=== PATIENT | male | born 1990 | race American Indian/Alaskan Native ===

== ENCOUNTER 2018-05-15 21:24 | Emergency (ER) | payer MEDICAID, OTHER ==
[2018-05-15 22:11] LABS: CHLORIDE,CL 98 mmol/L (101-111); SODIUM,NA 131 mmol/L (135-145)
[2018-05-15] MEDS ORDERED: cefTRIAXone 1 GM Vial IVPUSH ONE (22:17)
[2018-05-15] MEDS ORDERED: Acetaminophen 325 MG Tab PO ONE (22:17)
[2018-05-15] MEDS ORDERED: Sodium Chloride 0.9% 1,000 ML IV ONE ×2 (22:17→23:02)
[2018-05-15] MEDS ORDERED: Ibuprofen 600 MG Tab PO ONE (22:22)
--- NOTE | 2018-05-15 22:22 | EDM.PDOC ---
ED HPI GENERAL MEDICAL PROBLEM - General Chief Complaint: ENT Problem Stated Complaint: [id number] head pain since saturday Time Seen by Provider: 05/15/18 22:19 Source of Information: Reports: Patient History Limitations: Reports: No Limitations - History of Present Illness INITIAL COMMENTS - FREE TEXT/NARRATIVE: onset Sx since Saturday with posterior right pain and lump and sore throat been eating ok without N/V. thinks has fever. Bilateral Head Pain Score (Numeric/FACES): 6 - Related Data Allergies Allergy/AdvReac Type Severity Reaction Status Date / Time No Known Allergies Allergy Verified 05/15/18 21:32 Home Meds: Home Meds Acetaminophen [Tylenol] 650 mg PO Q6HR PRN 12/18/15 [History] Past Medical History - Past Health History Medical/Surgical History: Denies Medical/Surgical History Musculoskeletal History: Reports: Back Pain, Chronic Social & Family History - Family History Family Medical History: Noncontributory - Tobacco Use Smoking Status *Q: Current Every Day Smoker Years of Tobacco use: 9 Packs/Tins Daily: 0.1 Second Hand Smoke Exposure: Yes - Caffeine Use Caffeine Use: Reports: Coffee, Soda - Recreational Drug Use Recreational Drug Use: No - Living Situation & Occupation Living situation: Reports: with Family Occupation: Unemployed ED ROS ENT - Review of Systems Review Of Systems: ROS reveals no pertinent complaints other than HPI. ED EXAM, ENT - Physical Exam Exam: See Below Exam Limited By: No Limitations General Appearance: Alert, WD/WN, Mild Distress, Other (distraught) Ears: Normal External Exam, Normal Canal, Hearing Grossly Normal, Normal TMs, Other (rigth post auricular node) Mouth/Throat: Pharyngeal Erythema, Tonsillar Erythema Head: Atraumatic Neck: Non-Tender, Full Range of Motion. No: Lymphadenopathy (L), Lymphadenopathy (R) Respiratory/Chest: No Respiratory Distress Cardiovascular: Regular Rate, Rhythm GI/Abdominal: Soft, Non-Tender Neurological: Alert, Oriented, Normal Cognition, Normal Gait, No Motor/Sensory Deficits Psychiatric: Flat Affect Skin: Warm, Dry Lymphatic: Other (right post auricular) Course - Vital Signs Last Recorded V/S: Last Vital Signs Temp 39.7 C H 05/15/18 23:02 Pulse 107 H 05/15/18 21:27 Resp 18 05/15/18 21:27 BP 127/74 05/15/18 21:27 Pulse Ox 99 05/15/18 21:27 - Orders/Labs/Meds Orders: Active Orders 24 hr Category Date Time Status CULTURE BLOOD [BC] Stat Lab 05/15/18 21:45 Received CULTURE STREP A CONFIRMATION [] Stat Lab 05/15/18 22:17 Results STREP SCRN A RAPID W CULT CONF [] Stat Lab 05/15/18 22:17 Results Sodium Chloride 0.9% [Normal Saline] 1,000 ml Med 05/15/18 23:02 Active IV .BOLUS Medication Orders Sodium Chloride (Normal Saline) 1,000 mls @ 999 mls/hr IV .BOLUS ONE Stop: 05/16/18 00:02 Last Admin: 05/15/18 23:05 Dose: 999 mls/hr Labs: Laboratory Tests 05/15/18 05/15/18 05/15/18 Range/Units 21:45 21:45 21:45 WBC 15.9 H (5.0-10.0) 10^3/uL RBC 4.95 (4.6-6.2) 10^6/uL Hgb 15.1 D (14.0-18.0) g/dL Hct 43.9 (40.0-54.0) % MCV 88.7 (80-100) fL MCH 30.5 (27.0-34.0) pg MCHC 34.4 (33.0-35.0) g/dL Plt Count 210 (150-450) 10^3/uL Neut % (Auto) 86.3 H (42.2-75.2) % Lymph % (Auto) 5.3 L (20.5-50.1) % [place] % (Auto) 8.2 H (2-8) % Eos % (Auto) 0.1 L (1.0-3.0) % Baso % (Auto) 0.1 (0.0-1.0) % Sodium 131 L (135-145) mmol/L Potassium 3.5 L (3.6-5.0) mmol/L Chloride 98 L (101-111) mmol/L Carbon Dioxide 26.0 (21.0-31.0) mmol/L Anion Gap 10.5 BUN 11 (7-18) mg/dL Creatinine 1.1 (0.6-1.3) mg/dL Est Cr Clr Drug Dosing 84.13 mL/min Estimated GFR (MDRD) > 60 BUN/Creatinine Ratio 10.00 Glucose 174 H (74-105) mg/dL Lactic Acid 1.0 (0.5-2.2) mmol/L Calcium 8.5 (8.4-10.2) mg/dl Total Bilirubin 0.6 (0.2-1.0) mg/dL AST 35 (10-42) IU/L ALT 26 (10-60) IU/L Alkaline Phosphatase 81 (42-121) IU/L Total Protein 6.4 L (6.7-8.2) g/dl Albumin 3.6 (3.2-5.5) g/dl Globulin 2.8 Albumin/Globulin Ratio 1.29 Meds: Medications Generic Name Dose Route Start Last Admin Trade Name Alexisq PRN Reason Stop Dose Admin Sodium Chloride 1,000 mls @ 999 mls/hr 05/15/18 23:02 05/15/18 23:05 Normal Saline IV 05/16/18 00:02 999 mls/hr .BOLUS ONE Administration Discontinued Medications Generic Name Dose Route Start Last Admin Trade Name Alexisq PRN Reason Stop Dose Admin Acetaminophen 325 mg 05/15/18 22:17 05/15/18 22:45 Tylenol PO 05/15/18 22:18 Not Given NOW ONE Ceftriaxone Sodium 1 gm 05/15/18 22:17 05/15/18 22:30 Rocephin IVPUSH 05/15/18 22:18 1 gm ONETIME ONE Administration Sodium Chloride 1,000 mls @ 999 mls/hr 05/15/18 22:17 05/15/18 22:30 Normal Saline IV 05/15/18 23:17 999 mls/hr .BOLUS ONE Administration Ibuprofen 600 mg 05/15/18 22:22 05/15/18 22:32 Motrin PO 05/15/18 22:23 600 mg ONETIME ONE Administration - Re-Assessments/Exams Free Text/Narrative Re-Assessment/Exam: 05/15/18 23:20 re-exam; s/p IV + ABX = much better 05/15/18 23:47 re-exam; temp 100.8 feeling better wants to go home. Departure - Departure Time of Disposition: 23:48 Disposition: Home, Self-Care 01 Condition: Good Clinical Impression: Posterior auricular lymphadenopathy, Acute lymphangitis, Electrolyte imbalance - Discharge Information Instructions: Lymphangitis, Adult Referrals: Geovanny Dennison [Primary Care Provider] - Forms: ED Department Discharge Additional Instructions: 1) rest 2) continue tylenol or motrin for fever 3) drink lots of liquids 4) recheck if there is nay change or concern rx given; keflex 250mg qid x 40 - My Orders Last 24 Hours: My Active Orders 05/15/18 21:45 CULTURE BLOOD [BC] Stat 05/15/18 22:17 CULTURE STREP A CONFIRMATION [RM] Stat STREP SCRN A RAPID W CULT CONF [RM] Stat 05/15/18 23:02 Sodium Chloride 0.9% [Normal Saline] 1,000 ml IV .BOLUS - Assessment/Plan Last 24 Hours: My Active Orders 05/15/18 21:45 CULTURE BLOOD [BC] Stat 05/15/18 22:17 CULTURE STREP A CONFIRMATION [RM] Stat STREP SCRN A RAPID W CULT CONF [RM] Stat 05/15/18 23:02 Sodium Chloride 0.9% [Normal Saline] 1,000 ml IV .BOLUS
[2018-05-15 23:48] VITALS: BP 101/55
== END 2018-05-15 23:56 | disposition home or self-care (01) ==
LOC: DL.ED 21:24
DX: H60.11 Cellulitis of right external ear (principal); R59.0 Localized enlarged lymph nodes; E87.8 Other disorders of electrolyte and fluid balance, not elsewhere classified; F17.210 Nicotine dependence, cigarettes, uncomplicated
CPT/HCPCS: 36415; 80053; 83605; 85025; 87040; 87081; 87430; 96361; 96374; 99283; A9270; J0696; J7030

== ENCOUNTER 2019-12-01 15:22 | Emergency (ER) | payer MEDICAID ==
[2019-12-01 15:39] VITALS: BP 130/83; PULSE 125
== END 2019-12-01 17:35 | disposition left against medical advice (07) ==
LOC: DL.ED 15:22
DX: Z53.21 Procedure and treatment not carried out due to patient leaving prior to being seen by health care provider (principal)

== ENCOUNTER 2019-12-03 12:46 | Inpatient (IN) | payer MEDICAID ==
--- NOTE | 2019-12-03 13:36 | EDM.PDOC ---
ED HPI GENERAL MEDICAL PROBLEM - General Chief Complaint: Lower Extremity Injury/Pain Stated Complaint: WOUND ON RT LEG Time Seen by Provider: 12/03/19 13:35 Source of Information: Reports: Patient, Family, Old Records, RN, RN Notes Reviewed History Limitations: Reports: No Limitations - History of Present Illness INITIAL COMMENTS - FREE TEXT/NARRATIVE: Pt presents to ER from home with c/o worsening redness, warmth, and pain with drainage from the right lateral ankle. Pt states he was seen here on 11/27/19 and diagnosed with cellulitis. He was given Rx for Cephalexin and Bactrim DS. Pt states he only took the medicine for about 5 days then lost it. He denies fever. 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 Onset: Gradual Duration: Constant Location: Reports: Lower Extremity, Right Quality: Reports: Same as Previous Episode Severity: Moderate Improves with: Reports: None Worsens with: Reports: None Treatments IN HOME CAREGIVER: Reports: Other Medication(s) Right Leg Pain Score (Numeric/FACES): 6 - Related Data Allergies Allergy/AdvReac Type Severity Reaction Status Date / Time No Known Allergies Allergy Verified 12/03/19 13:38 Home Meds: Home Meds Cephalexin [Keflex] 500 mg PO BID 12/01/19 [History] Past Medical History - Past Health History Medical/Surgical History: Denies Medical/Surgical History HEENT History: Reports: None Cardiovascular History: Reports: None Respiratory History: Reports: None Gastrointestinal History: Reports: None Genitourinary History: Reports: None Musculoskeletal History: Reports: Back Pain, Chronic Neurological History: Reports: None Psychiatric History: Reports: None Endocrine/Metabolic History: Reports: None Hematologic History: Reports: None Immunologic History: Reports: None Oncologic (Cancer) History: Reports: None Dermatologic History: Reports: Cellulitis - Infectious Disease History Infectious Disease History: Reports: MRSA - Past Surgical History Head Surgeries/Procedures: Reports: None Social & Family History - Family History Family Medical History: Noncontributory - Caffeine Use Caffeine Use: Reports: None - Living Situation & Occupation Living situation: Reports: with Family Occupation: Unemployed Review of Systems - Review of Systems Review Of Systems: Comprehensive ROS is negative, except as noted in HPI. ED EXAM, GENERAL - Physical Exam Exam: See Below Exam Limited By: No Limitations General Appearance: Alert, WD/WN, No Apparent Distress Nose: Normal Inspection Throat/Mouth: Normal Inspection Head: Atraumatic, Normocephalic Neck: Normal Inspection Respiratory/Chest: No Respiratory Distress, Lungs Clear Cardiovascular: Normal Peripheral Pulses, Regular Rate, Rhythm, Tachycardia Extremities: Normal Range of Motion, Normal Capillary Refill, Leg Pain (Rt), Redness (Rt lateral lower leg with fluctuant draining, unstagable wound). No: Joint Swelling, Suzette's Sign Neurological: Alert, Oriented, No Motor/Sensory Deficits Psychiatric: Normal Mood Course - Vital Signs Last Recorded V/S: Last Vital Signs Temp 99.2 F 12/03/19 13:32 Pulse 120 H 12/03/19 13:32 Resp 16 12/03/19 13:32 BP 128/87 12/03/19 13:32 Pulse Ox 100 12/03/19 13:32 - Orders/Labs/Meds Orders: Active Orders 24 hr Category Date Time Status Peripheral IV Care [RC] . DIRECTED Care 12/03/19 13:59 Active Ankle Min 3V Rt [CR] Urgent Exams 12/03/19 13:59 Taken CULTURE BLOOD [BC] Stat Lab 12/03/19 14:10 Received CULTURE BLOOD [BC] Stat Lab 12/03/19 14:16 Received CULTURE WOUND [RM] Stat Lab 12/03/19 13:58 Received Sodium Chloride 0.9% [Normal Saline] 1,000 ml Med 12/03/19 14:47 Active IV .BOLUS Sodium Chloride 0.9% [Saline Flush] Med 12/03/19 13:59 Active 10 ml FLUSH ASDIRECTED PRN Vancomycin 1 gm Med 12/03/19 14:47 Active Sodium Chloride 0.9% [Normal Saline] 250 ml IV ONETIME Blood Culture x2 Reflex Set [OM.PC] Stat Oth 12/03/19 13:59 Ordered Peripheral IV Insertion Adult [OM.PC] Stat Oth 12/03/19 13:59 Ordered Medication Orders Sodium Chloride (Normal Saline) 1,000 mls @ 999 mls/hr IV .BOLUS ONE Stop: 12/03/19 15:47 Last Admin: 12/03/19 15:04 Dose: 999 mls/hr Vancomycin HCl 1 gm/ Sodium (Chloride) 250 mls @ 167 mls/hr IV ONETIME ONE Stop: 12/03/19 16:16 Last Admin: 12/03/19 15:10 Dose: 167 mls/hr Sodium Chloride (Saline Flush) 10 ml FLUSH ASDIRECTED PRN PRN Reason: Keep Vein Open Last Admin: 12/03/19 14:31 Dose: 10 ml Labs: Laboratory Tests 12/03/19 12/03/19 12/03/19 Range/Units 14:10 14:10 14:10 WBC 23.8 H (5.0-10.0) 10^3/uL RBC 4.90 (4.6-6.2) 10^6/uL Hgb 14.9 (14.0-18.0) g/dL Hct 42.5 (40.0-54.0) % MCV 86.7 (80-100) fL MCH 30.4 (27.0-34.0) pg MCHC 35.1 H (33.0-35.0) g/dL Plt Count 316 (150-450) 10^3/uL Neut % (Auto) 84.3 H (42.2-75.2) % Lymph % (Auto) 7.3 L (20.5-50.1) % [place] % (Auto) 8.3 H (2-8) % Eos % (Auto) 0.0 L (1.0-3.0) % Baso % (Auto) 0.1 (0.0-1.0) % Sodium 136 (135-145) mmol/L Potassium 3.3 L (3.6-5.0) mmol/L Chloride 100 L (101-111) mmol/L Carbon Dioxide 27.0 (21.0-31.0) mmol/L Anion Gap 12.3 BUN 7 (7-18) mg/dL Creatinine 0.9 (0.6-1.3) mg/dL Est Cr Clr Drug Dosing 77.77 mL/min Estimated GFR (MDRD) > 60 BUN/Creatinine Ratio 7.77 Glucose 115 H (74-105) mg/dL Lactic Acid 0.9 (0.5-2.2) mmol/L Calcium 8.6 (8.4-10.2) mg/dl Total Bilirubin 0.9 (0.2-1.0) mg/dL AST 27 (10-42) IU/L ALT 35 (10-60) IU/L Alkaline Phosphatase 87 (42-121) IU/L C-Reactive Protein (0.0-1.3) mg/dL Total Protein 7.3 (6.7-8.2) g/dl Albumin 3.5 (3.2-5.5) g/dl Globulin 3.8 Albumin/Globulin Ratio 0.92 12/03/19 Range/Units 14:10 WBC (5.0-10.0) 10^3/uL RBC (4.6-6.2) 10^6/uL Hgb (14.0-18.0) g/dL Hct (40.0-54.0) % MCV (80-100) fL MCH (27.0-34.0) pg MCHC (33.0-35.0) g/dL Plt Count (150-450) 10^3/uL Neut % (Auto) (42.2-75.2) % Lymph % (Auto) (20.5-50.1) % [place] % (Auto) (2-8) % Eos % (Auto) (1.0-3.0) % Baso % (Auto) (0.0-1.0) % Sodium (135-145) mmol/L Potassium (3.6-5.0) mmol/L Chloride (101-111) mmol/L Carbon Dioxide (21.0-31.0) mmol/L Anion Gap BUN (7-18) mg/dL Creatinine (0.6-1.3) mg/dL Est Cr Clr Drug Dosing mL/min Estimated GFR (MDRD) BUN/Creatinine Ratio Glucose (74-105) mg/dL Lactic Acid (0.5-2.2) mmol/L Calcium (8.4-10.2) mg/dl Total Bilirubin (0.2-1.0) mg/dL AST (10-42) IU/L ALT (10-60) IU/L Alkaline Phosphatase (42-121) IU/L C-Reactive Protein 17.3 H (0.0-1.3) mg/dL Total Protein (6.7-8.2) g/dl Albumin (3.2-5.5) g/dl Globulin Albumin/Globulin Ratio Meds: Medications Generic Name Dose Route Start Last Admin Trade Name Freq PRN Reason Stop Dose Admin Sodium Chloride 1,000 mls @ 999 mls/hr 12/03/19 14:47 12/03/19 15:04 Normal Saline IV 01/02/20 15:47 999 mls/hr .BOLUS ONE Administration Vancomycin HCl 1 gm/ Sodium 250 mls @ 167 mls/hr 12/03/19 14:47 12/03/19 15: 10 Chloride IV 12/03/19 16:16 167 mls/hr ONETIME ONE Administration Sodium Chloride 10 ml 12/03/19 13:59 12/03/19 14:31 Saline Flush FLUSH 10 ml ASDIRECTED PRN Administration Keep Vein Open Discontinued Medications Generic Name Dose Route Start Last Admin Trade Name Freq PRN Reason Stop Dose Admin Diphenhydramine HCl 12.5 mg 12/03/19 14:55 12/03/19 15:04 Benadryl IVPUSH 12/03/19 14:56 12.5 mg ONETIME ONE Administration Fentanyl 100 mcg 12/03/19 15:16 Sublimaze IVPUSH 12/03/19 15:17 ONETIME ONE Ondansetron HCl 4 mg 12/03/19 15:18 Zofran IV 12/03/19 15:19 ONETIME ONE - Radiology Interpretation Free Text/Narrative:: XR Right Ankle: no fracture, no acute findings, see Rad. report. - Re-Assessments/Exams Free Text/Narrative Re-Assessment/Exam: 12/03/19 15:32 Dr. Cordova is willing to admit the pt if podiatry will consult for possible I&D. 12/03/19 15:33 Dr. Archie Barrow is willing to consult. Departure - Departure Time of Disposition: 15:33 (admitted to Dr. Cordova with Dr. Archie Barrow to consult.) Disposition: Admitted As Inpatient 67 Condition: Fair Clinical Impression: Cellulitis and abscess of right lower extremity - Discharge Information *PRESCRIPTION DRUG MONITORING PROGRAM REVIEWED*: No *COPY OF PRESCRIPTION DRUG MONITORING REPORT IN PATIENT JOSE RAUL: No Forms: ED Department Discharge Sepsis Event Note - Focused Exam Vital Signs: Vital Signs Temp Pulse Resp BP Pulse Ox 12/03/19 13:32 99.2 F 120 H 16 128/87 100 Date Exam was Performed: 12/03/19 Time Exam was Performed: 15:25 - My Orders Last 24 Hours: My Active Orders 12/03/19 13:58 CULTURE WOUND [RM] Stat 12/03/19 13:59 Peripheral IV Care [RC] . DIRECTED Ankle Min 3V Rt [CR] Urgent Sodium Chloride 0.9% [Saline Flush] 10 ml FLUSH ASDIRECTED PRN Blood Culture x2 Reflex Set [OM.PC] Stat Peripheral IV Insertion Adult [OM.PC] Stat 12/03/19 14:10 CULTURE BLOOD [BC] Stat 12/03/19 14:16 CULTURE BLOOD [BC] Stat 12/03/19 14:47 Sodium Chloride 0.9% [Normal Saline] 1,000 ml IV .BOLUS Vancomycin 1 gm Sodium Chloride 0.9% [Normal Saline] 250 ml IV ONETIME - Assessment/Plan Last 24 Hours: My Active Orders 12/03/19 13:58 CULTURE WOUND [RM] Stat 12/03/19 13:59 Peripheral IV Care [RC] . DIRECTED Ankle Min 3V Rt [CR] Urgent Sodium Chloride 0.9% [Saline Flush] 10 ml FLUSH ASDIRECTED PRN Blood Culture x2 Reflex Set [OM.PC] Stat Peripheral IV Insertion Adult [OM.PC] Stat 12/03/19 14:10 CULTURE BLOOD [BC] Stat 12/03/19 14:16 CULTURE BLOOD [BC] Stat 12/03/19 14:47 Sodium Chloride 0.9% [Normal Saline] 1,000 ml IV .BOLUS Vancomycin 1 gm Sodium Chloride 0.9% [Normal Saline] 250 ml IV ONETIME
[2019-12-03] MEDS ORDERED: Sodium Chloride 0.9% 10 ML Syringe FLUSH PRN (13:59)
[2019-12-03 14:43] LABS: ANION GAP 12.3; CHLORIDE,CL 100 mmol/L (101-111); SODIUM,NA 136 mmol/L (135-145)
[2019-12-03] MEDS ORDERED: Sodium Chloride 0.9% 1,000 ML IV ONE (14:47)
[2019-12-03] MEDS ORDERED: diphenhydrAMINE 50 MG/ML SDV IVPUSH ONE (14:55)
[2019-12-03] MEDS ORDERED: fentaNYL 100 MCG/2 ML SDV IVPUSH ONE (15:16)
[2019-12-03] MEDS ORDERED: Ondansetron 4 MG/2 ML SDV IV ONE (15:18)
[2019-12-03] MEDS ORDERED: Morphine 4 MG/ML Syringe IVPUSH PRN (15:22)
[2019-12-03] MEDS ORDERED: Ondansetron 4 MG/2 ML SDV IVPUSH PRN (15:22)
--- NOTE | 2019-12-03 15:34 | PCM.HP ---
H&P History of Present Illness - General Date of Service: 12/03/19 Admit Problem/Dx: Admission Diagnosis/Problem Admission Diagnosis/Problem Sepsis Source of Information: Patient History Limitations: Reports: No Limitations - History of Present Illness Initial Comments - Free Text/Narative: Is a 29-year-old man with no significant past medical history except for chronic low back pain. The patient was having irritation of his right lower leg by his boots in November 2019. After a while the patient began to have pain at the lower leg. The area became reddish and warm to touch. He came to the emergency room and was diagnosed as having cellulitis. Patient was given prescription of Keflex. He did not take the medication as prescribed. Came back today complaining of severe pain at the right lower leg. Intensity of pain is about 9 on a scale of 0-10. Associated chills and rigors. White cell count was found to be elevated at 23,000. Right Leg Pain Score (Numeric/FACES): 6 - Related Data Allergies/Adverse Reactions: Allergies Allergy/AdvReac Type Severity Reaction Status Date / Time No Known Allergies Allergy Verified 12/03/19 13:38 Home Medications: Home Meds Cephalexin [Keflex] 500 mg PO BID 12/01/19 [History] Past Medical History - Past Health History Medical/Surgical History: Denies Medical/Surgical History HEENT History: Reports: None Cardiovascular History: Reports: None Respiratory History: Reports: None Gastrointestinal History: Reports: None Genitourinary History: Reports: None Musculoskeletal History: Reports: Back Pain, Chronic Neurological History: Reports: None Psychiatric History: Reports: None Endocrine/Metabolic History: Reports: None Hematologic History: Reports: None Immunologic History: Reports: None Oncologic (Cancer) History: Reports: None Dermatologic History: Reports: Cellulitis - Infectious Disease History Infectious Disease History: Reports: None - Past Surgical History Head Surgeries/Procedures: Reports: None Social & Family History - Family History Family Medical History: Noncontributory - Tobacco Use Smoking Status *Q: Current Every Day Smoker Years of Tobacco use: 10 Packs/Tins Daily: 0.5 Second Hand Smoke Exposure: No - Caffeine Use Caffeine Use: Reports: None - Recreational Drug Use Recreational Drug Use: No - Living Situation & Occupation Living situation: Reports: with Family Occupation: Unemployed H&P Review of Systems - Review of Systems: Review Of Systems: See Below General: Reports: Fever, Chills, Malaise HEENT: Reports: No Symptoms Pulmonary: Reports: No Symptoms Cardiovascular: Reports: Palpitations Gastrointestinal: Reports: No Symptoms Genitourinary: Reports: No Symptoms Musculoskeletal: Reports: Leg Pain Skin: Reports: Erythema Exam - Exam Exam: See Below - Vital Signs Vital Signs: Last Vital Signs Temp 37.3 C 12/03/19 13:32 Pulse 120 H 12/03/19 13:32 Resp 16 12/03/19 13:32 BP 128/87 12/03/19 13:32 Pulse Ox 100 12/03/19 13:32 Weight: 59.693 kg - Exam General: Alert, Oriented, Cooperative HEENT: Conjunctiva Clear, Hearing Intact Neck: Supple, Trachea Midline Lungs: Clear to Auscultation Cardiovascular: Regular Rate, Tachycardia GI/Abdominal Exam: Normal Bowel Sounds, Soft, Non-Tender, No Organomegaly, No Distention, No Abnormal Bruit, No Mass, Pelvis Stable Extremities: Other (Erythema and swelling of the right lower leg. It is warm to touch. Fluctuant area identified.) - Patient Data Lab Results Last 24 hrs: Laboratory Results - last 24 hr 12/03/19 12/03/19 12/03/19 Range/Units 14:10 14:10 14:10 WBC 23.8 H (5.0-10.0) 10^3/uL RBC 4.90 (4.6-6.2) 10^6/uL Hgb 14.9 (14.0-18.0) g/dL Hct 42.5 (40.0-54.0) % MCV 86.7 (80-100) fL MCH 30.4 (27.0-34.0) pg MCHC 35.1 H (33.0-35.0) g/dL Plt Count 316 (150-450) 10^3/uL Neut % (Auto) 84.3 H (42.2-75.2) % Lymph % (Auto) 7.3 L (20.5-50.1) % [place] % (Auto) 8.3 H (2-8) % Eos % (Auto) 0.0 L (1.0-3.0) % Baso % (Auto) 0.1 (0.0-1.0) % Sodium 136 (135-145) mmol/L Potassium 3.3 L (3.6-5.0) mmol/L Chloride 100 L (101-111) mmol/L Carbon Dioxide 27.0 (21.0-31.0) mmol/L Anion Gap 12.3 BUN 7 (7-18) mg/dL Creatinine 0.9 (0.6-1.3) mg/dL Est Cr Clr Drug Dosing 77.77 mL/min Estimated GFR (MDRD) > 60 BUN/Creatinine Ratio 7.77 Glucose 115 H (74-105) mg/dL Lactic Acid 0.9 (0.5-2.2) mmol/L Calcium 8.6 (8.4-10.2) mg/dl Total Bilirubin 0.9 (0.2-1.0) mg/dL AST 27 (10-42) IU/L ALT 35 (10-60) IU/L Alkaline Phosphatase 87 (42-121) IU/L C-Reactive Protein (0.0-1.3) mg/dL Total Protein 7.3 (6.7-8.2) g/dl Albumin 3.5 (3.2-5.5) g/dl Globulin 3.8 Albumin/Globulin Ratio 0.92 /01/21 Range/Units 14:10 WBC (5.0-10.0) 10^3/uL RBC (4.6-6.2) 10^6/uL Hgb (14.0-18.0) g/dL Hct (40.0-54.0) % MCV (80-100) fL MCH (27.0-34.0) pg MCHC (33.0-35.0) g/dL Plt Count (150-450) 10^3/uL Neut % (Auto) (42.2-75.2) % Lymph % (Auto) (20.5-50.1) % [place] % (Auto) (2-8) % Eos % (Auto) (1.0-3.0) % Baso % (Auto) (0.0-1.0) % Sodium (135-145) mmol/L Potassium (3.6-5.0) mmol/L Chloride (101-111) mmol/L Carbon Dioxide (21.0-31.0) mmol/L Anion Gap BUN (7-18) mg/dL Creatinine (0.6-1.3) mg/dL Est Cr Clr Drug Dosing mL/min Estimated GFR (MDRD) BUN/Creatinine Ratio Glucose (74-105) mg/dL Lactic Acid (0.5-2.2) mmol/L Calcium (8.4-10.2) mg/dl Total Bilirubin (0.2-1.0) mg/dL AST (10-42) IU/L ALT (10-60) IU/L Alkaline Phosphatase (42-121) IU/L C-Reactive Protein 17.3 H (0.0-1.3) mg/dL Total Protein (6.7-8.2) g/dl Albumin (3.2-5.5) g/dl Globulin Albumin/Globulin Ratio Result Diagrams: 12/03/19 14:10 12/03/19 14:10 Problem List Initiated/Reviewed/Updated: Yes Orders Last 24hrs: Active Orders 24 hr Category Date Time Status Patient Status [ADT] Routine ADT 12/03/19 15:22 Ordered Intake and Output [RC] QSHIFT Care 12/03/19 15:23 Ordered Oxygen Therapy [RC] PRN Care 12/03/19 15:22 Ordered Peripheral IV Care [RC] . DIRECTED Care 12/03/19 13:59 Active Up ad Charline [RC] ASDIRECTED Care 12/03/19 15:22 Ordered VTE/DVT Education [RC] PER UNIT ROUTINE Care 12/03/19 15:22 Ordered Vital Signs [RC] Q4H Care 12/03/19 15:22 Ordered Regular Diet [DIET] Diet 12/03/19 Dinner Ordered Ankle Min 3V Rt [CR] Urgent Exams 12/03/19 13:59 Taken BASIC METABOLIC PANEL,BMP [CHEM] AM Lab 12/04/19 05:11 Ordered CBC WITH AUTO DIFF [HEME] AM Lab 12/04/19 05:11 Ordered CULTURE BLOOD [BC] Stat Lab 12/03/19 14:10 Received CULTURE BLOOD [BC] Stat Lab 12/03/19 14:16 Received CULTURE WOUND [RM] Stat Lab 12/03/19 13:58 Received Enoxaparin [Lovenox] Med 12/04/19 09:00 Ordered 30 mg SUBCUT DAILY Morphine Med 12/03/19 15:22 Ordered 4 mg IVPUSH Q2H PRN Ondansetron [Zofran] Med 12/03/19 15:22 Ordered 4 mg IVPUSH Q6H PRN Pharmacy to Dose - Vancomycin Med 12/03/19 15:25 Once 1,000 dose .XX ONETIME ONE Piperacillin/Tazobactam [Zosyn] 3.375 gm Med 12/03/19 15:30 Ordered Sodium Chloride 0.9% [Normal Saline] 100 ml IV Q4H Sodium Chloride 0.9% @ 125 MLS/HR (1000ml) Med 12/03/19 15:30 Ordered Sodium Chloride 0.9% [Normal Saline] 1,000 ml IV ASDIRECTED Sodium Chloride 0.9% [Normal Saline] 1,000 ml Med 12/03/19 14:47 Active IV .BOLUS Sodium Chloride 0.9% [Saline Flush] Med 12/03/19 13:59 Active 10 ml FLUSH ASDIRECTED PRN Vancomycin 1 gm Med 12/03/19 14:47 Active Sodium Chloride 0.9% [Normal Saline] 250 ml IV ONETIME Blood Culture x2 Reflex Set [OM.PC] Stat Oth 12/03/19 13:59 Ordered Peripheral IV Insertion Adult [OM.PC] Stat Oth 12/03/19 13:59 Ordered Resuscitation Status Routine Resus Stat 12/03/19 15:22 Ordered Medication Orders Enoxaparin Sodium (Lovenox) 30 mg SUBCUT DAILY [facility] Sodium Chloride (Normal Saline) 1,000 mls @ 999 mls/hr IV .BOLUS ONE Stop: 12/03/19 15:47 Last Admin: 12/03/19 15:04 Dose: 999 mls/hr Vancomycin HCl 1 gm/ Sodium (Chloride) 250 mls @ 167 mls/hr IV ONETIME ONE Stop: 12/03/19 16:16 Last Admin: 12/03/19 15:10 Dose: 167 mls/hr Piperacillin Sod/Tazobactam (Sod 3.375 gm/ Sodium Chloride) 100 mls @ 200 mls/ hr IV Q4H [facility] Sodium Chloride (Normal Saline) 1,000 mls @ 125 mls/hr IV ASDIRECTED [facility] Morphine Sulfate (Morphine) 4 mg IVPUSH Q2H PRN PRN Reason: Pain (severe 7-10) Ondansetron HCl (Zofran) 4 mg IVPUSH Q6H PRN PRN Reason: Nausea/Vomiting Sodium Chloride (Saline Flush) 10 ml FLUSH ASDIRECTED PRN PRN Reason: Keep Vein Open Last Admin: 12/03/19 14:31 Dose: 10 ml Vancomycin HCl (Pharmacy To Dose - Vancomycin) 1,000 dose .XX ONETIME ONE Stop: 12/03/19 15:26 Assessment/Plan Comment:: #. Sepsis this is secondary to cellulitis of the right leg and abscess #. Abscess right leg #. Cellulitis of the right leg There is abscess noted underneath the skin. Patient is not a diabetic. I do not think whether with necrotizing fasciitis but we have to keep that in mind. #. Hypokalemia Reason for this is not obvious Plan: Admit patient to medical floor Patient required surgical drainage of the abscess. This was discussed with emergency room physician indicated that he would contact the receipt and report clerk for the procedure in the operating room Start empiric antibiotics with intravenous Zosyn Start intravenous vancomycin Obtain blood cultures Intravenous morphine for pain control Discussed with the emergency room physician
[2019-12-03] MEDS ORDERED: Lidocaine 1% 30 ML SDV INJECT ONE (15:45)
[2019-12-03] MEDS ORDERED: Bupivacaine 0.5% 30 ML SDV INJECT ONE (15:45)
--- NOTE | 2019-12-03 16:43 | PCM.CONSN ---
- General Info Date of Service: 12/03/19 Subjective Update: 29 y/o male presents to ER with right lower extremity pain and redness. Reports he was first seen 11/27, did get prescribed antibiotics but he lost them so only took them for a couple days. States pain and redness has worsened the last couple of days. 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 Functional Status: Reports: Pain Controlled - Patient Data Vitals - Most Recent: Last Vital Signs Temp 37.3 C 12/03/19 13:32 Pulse 120 H 12/03/19 13:32 Resp 16 12/03/19 13:32 BP 128/87 12/03/19 13:32 Pulse Ox 100 12/03/19 13:32 Weight - Most Recent: 59.693 kg Lab Results Last 24 Hours: Laboratory Results - last 24 hr 12/03/19 12/03/19 12/03/19 Range/Units 14:10 14:10 14:10 WBC 23.8 H (5.0-10.0) 10^3/uL RBC 4.90 (4.6-6.2) 10^6/uL Hgb 14.9 (14.0-18.0) g/dL Hct 42.5 (40.0-54.0) % MCV 86.7 (80-100) fL MCH 30.4 (27.0-34.0) pg MCHC 35.1 H (33.0-35.0) g/dL Plt Count 316 (150-450) 10^3/uL Neut % (Auto) 84.3 H (42.2-75.2) % Lymph % (Auto) 7.3 L (20.5-50.1) % [place] % (Auto) 8.3 H (2-8) % Eos % (Auto) 0.0 L (1.0-3.0) % Baso % (Auto) 0.1 (0.0-1.0) % Sodium 136 (135-145) mmol/L Potassium 3.3 L (3.6-5.0) mmol/L Chloride 100 L (101-111) mmol/L Carbon Dioxide 27.0 (21.0-31.0) mmol/L Anion Gap 12.3 BUN 7 (7-18) mg/dL Creatinine 0.9 (0.6-1.3) mg/dL Est Cr Clr Drug Dosing 77.77 mL/min Estimated GFR (MDRD) > 60 BUN/Creatinine Ratio 7.77 Glucose 115 H (74-105) mg/dL Lactic Acid 0.9 (0.5-2.2) mmol/L Calcium 8.6 (8.4-10.2) mg/dl Total Bilirubin 0.9 (0.2-1.0) mg/dL AST 27 (10-42) IU/L ALT 35 (10-60) IU/L Alkaline Phosphatase 87 (42-121) IU/L C-Reactive Protein (0.0-1.3) mg/dL Total Protein 7.3 (6.7-8.2) g/dl Albumin 3.5 (3.2-5.5) g/dl Globulin 3.8 Albumin/Globulin Ratio 0.92 12/03/19 Range/Units 14:10 WBC (5.0-10.0) 10^3/uL RBC (4.6-6.2) 10^6/uL Hgb (14.0-18.0) g/dL Hct (40.0-54.0) % MCV (80-100) fL MCH (27.0-34.0) pg MCHC (33.0-35.0) g/dL Plt Count (150-450) 10^3/uL Neut % (Auto) (42.2-75.2) % Lymph % (Auto) (20.5-50.1) % [place] % (Auto) (2-8) % Eos % (Auto) (1.0-3.0) % Baso % (Auto) (0.0-1.0) % Sodium (135-145) mmol/L Potassium (3.6-5.0) mmol/L Chloride (101-111) mmol/L Carbon Dioxide (21.0-31.0) mmol/L Anion Gap BUN (7-18) mg/dL Creatinine (0.6-1.3) mg/dL Est Cr Clr Drug Dosing mL/min Estimated GFR (MDRD) BUN/Creatinine Ratio Glucose (74-105) mg/dL Lactic Acid (0.5-2.2) mmol/L Calcium (8.4-10.2) mg/dl Total Bilirubin (0.2-1.0) mg/dL AST (10-42) IU/L ALT (10-60) IU/L Alkaline Phosphatase (42-121) IU/L C-Reactive Protein 17.3 H (0.0-1.3) mg/dL Total Protein (6.7-8.2) g/dl Albumin (3.2-5.5) g/dl Globulin Albumin/Globulin Ratio Med Orders - Current: Current Medications Enoxaparin Sodium (Lovenox) 40 mg SUBCUT DAILY [facility] Piperacillin Sod/Tazobactam (Sod 3.375 gm/ Sodium Chloride) 100 mls @ 200 mls/ hr IV Q6H [facility] Sodium Chloride (Normal Saline) 1,000 mls @ 125 mls/hr IV ASDIRECTED [facility] Vancomycin HCl 1 gm/ Premix 200 mls @ 133.333 mls/hr IV Q8H [facility] Morphine Sulfate (Morphine) 4 mg IVPUSH Q2H PRN PRN Reason: Pain (severe 7-10) Ondansetron HCl (Zofran) 4 mg IVPUSH Q6H PRN PRN Reason: Nausea/Vomiting Sodium Chloride (Saline Flush) 10 ml FLUSH ASDIRECTED PRN PRN Reason: Keep Vein Open Last Admin: 12/03/19 14:31 Dose: 10 ml Vancomycin HCl (Pharmacy To Dose - Vancomycin) 1,000 dose .XX ONETIME ONE Stop: 12/03/19 15:26 Discontinued Medications Bupivacaine HCl (Marcaine 0.5%) 30 ml INJECT ONETIME ONE Stop: 12/03/19 15:46 Last Admin: 12/03/19 15:56 Dose: 30 ml Diphenhydramine HCl (Benadryl) 12.5 mg IVPUSH ONETIME ONE Stop: 12/03/19 14:56 Last Admin: 12/03/19 15:04 Dose: 12.5 mg Fentanyl (Sublimaze) 100 mcg IVPUSH ONETIME ONE Stop: 12/03/19 15:17 Last Admin: 12/03/19 15:40 Dose: 100 mcg Sodium Chloride (Normal Saline) 1,000 mls @ 999 mls/hr IV .BOLUS ONE Stop: 12/03/19 15:47 Last Admin: 12/03/19 15:04 Dose: 999 mls/hr Vancomycin HCl 1 gm/ Sodium (Chloride) 250 mls @ 167 mls/hr IV ONETIME ONE Stop: 12/03/19 16:16 Last Admin: 12/03/19 15:10 Dose: 167 mls/hr Lidocaine HCl (Xylocaine-Mpf 1%) 30 ml INJECT ONETIME ONE Stop: 12/03/19 15:46 Last Admin: 12/03/19 15:56 Dose: 30 ml Ondansetron HCl (Zofran) 4 mg IV ONETIME ONE Stop: 12/03/19 15:19 Last Admin: 12/03/19 15:39 Dose: 4 mg - Exam General: Alert, Oriented, No Acute Distress Physical Findings Comments:: Right LE physical exam reveals 2/4 DP/PT pulses, pain to right lateral ankle extending to calf area, cellulitis to lateral foot/lower leg with area of fluctuance to lateral ankle area, upon incision of the fluctuant area there was a large amount of purulent drainage expressed, did not go to ankle joint, did not track up tendon, no bone visualize or probed. Xrays right ankle reveals no signs of cortical reaction, no gas in soft tissues. Sepsis Event Note - Evaluation Sepsis Screening Result: No Definite Risk - Focused Exam Vital Signs: Vital Signs Temp Pulse Resp BP Pulse Ox 12/03/19 13:32 37.3 C 120 H 16 128/87 100 Date Exam was Performed: 12/03/19 Time Exam was Performed: 16:35 Consult PN Assessment/Plan Procedures: Procedures ASSAY OF AMYLASE (12/18/15) ASSAY OF LACTIC ACID (11/17/19) ASSAY OF LIPASE (12/18/15) BLOOD CULTURE FOR BACTERIA (11/17/19) COMPLETE CBC W/AUTO DIFF WBC (11/17/19) COMPREHEN METABOLIC PANEL (11/17/19) CULTURE AEROBIC IDENTIFY (11/17/19) CULTURE OTHR SPECIMN AEROBIC (11/17/19) CULTURE SCREEN ONLY (05/15/18) EMERGENCY DEPT VISIT (11/17/19) EMERGENCY DEPT VISIT (12/18/15) EMERGENCY DEPT VISIT (10/15/15) EMERGENCY DEPT VISIT (12/19/13) HYDRATE IV INFUSION ADD-ON (05/15/18) MANUAL THERAPY 1/> [facility] (02/01/14) PT EVALUATION (02/01/14) ROUTINE VENIPUNCTURE (11/17/19) STREP A AG IA (05/15/18) THER/PROPH/DIAG INJ IV PUSH (05/15/18) THER/PROPH/DIAG IV INF ADDON (11/17/19) THER/PROPH/DIAG IV INF INIT (11/17/19) THERAPEUTIC EXERCISES (02/01/14) TX/PRO/DX INJ NEW DRUG ADDON (12/18/15) URINALYSIS AUTO W/SCOPE (12/18/15) X-RAY EXAM CHEST 2 VIEWS (02/05/19) X-RAY EXAM OF HAND (10/15/15) (1) Cellulitis and abscess of right lower extremity SNOMED Code(s): 154389282 Code(s): L03.115 - CELLULITIS OF RIGHT LOWER LIMB; L02.415 - CUTANEOUS ABSCESS OF RIGHT LOWER LIMB Current Visit: Yes Problem List Initiated/Reviewed/Updated: Yes Plan: Discussed abscess with patient and I&D procedure, he has had this done on his arm in the past, verablizes consent for right lateral ankle I&D at bedside in ER. I prepped with hibacleanse scrub. I then made small incision to lateral right ankle at area of fluctuance measuring 2cm, large amount of purulent drainage was expressed. I used the hemostat to ensure no areas of purulent pockets and I was able to visualize the underlying area which did not extend to ankle joint or along tendon course. I irrigated with copious amounts of NS, I then packed open with iodoform packing. Dressed with gauze and franklin. He is being admitted to the floor for IV antibiotics. Cultures were taken. I will recheck tomorrow AM, Will have him be NPO after midnight tonight just in case no improvement or need for OR tomorrow.
--- NOTE | 2019-12-03 17:19 | CR ---
EXAMINATION: Ankle Min 3V Rt SEX: Male AGE: 29 years CLINICAL HISTORY: 29-year-old male with "draining ulcer" and clinical cellulitis laterally right ankle. Interpretation: Pronounced soft tissue swelling (STS), laterally, right ankle. No sign of underlying inflammatory periostitis or osteomyelitis. No acute fracture or dislocation right ankle (suggestion of small ankle joint effusion). No foreign bodies. No heel spurs.
[2019-12-03] MEDS: Sodium Chloride 0.9% 1,000 ML IV SCH (17:24)
[2019-12-03] MEDS: Piperacillin/Tazobactam 3.375 GM in Sodium Chloride 0.9% 100 ML IV SCH (17:27)
[2019-12-03] MEDS: Acetaminophen/oxyCODONE 325-5 MG Tab PO PRN ×2 (17:27→21:30)
[2019-12-04] MEDS: Piperacillin/Tazobactam 3.375 GM in Sodium Chloride 0.9% 100 ML IV SCH ×5 (00:51→23:38)
[2019-12-04] MEDS: Sodium Chloride 0.9% 1,000 ML IV SCH (01:31)
[2019-12-04 06:58] LABS: CHLORIDE,CL 103 mmol/L (101-111); SODIUM,NA 136 mmol/L (135-145)
[2019-12-04] MEDS: Acetaminophen/oxyCODONE 325-5 MG Tab PO PRN ×4 (08:24→21:23)
[2019-12-04] MEDS: Enoxaparin 40 MG/0.4 ML Syringe SUBCUT SCH (08:25)
--- NOTE | 2019-12-04 11:33 | PCM.PN ---
- General Info Date of Service: 12/04/19 Subjective Update: Patient offers no new complaint today. Still having significant pain of the right lower extremity. Analgesics are helping. The duration of pain is since greater than 1 week No nausea and no vomiting.. - Review of Systems General: Reports: Weakness - Patient Data Vitals - Most Recent: Last Vital Signs Temp 36.9 C 12/04/19 08:00 Pulse 90 12/04/19 08:00 Resp 16 12/04/19 08:00 BP 109/61 12/04/19 08:00 Pulse Ox 99 12/04/19 08:00 Weight - Most Recent: 59.058 kg I&O - Last 24 Hours: Intake & Output 12/03/19 12/04/19 12/04/19 22:59 06:59 14:59 Intake Total 1469 240 Balance 1469 240 Lab Results Last 24 Hours: Laboratory Results - last 24 hr 12/03/19 12/03/19 12/03/19 Range/Units 14:10 14:10 14:10 WBC 23.8 H (5.0-10.0) 10^3/uL RBC 4.90 (4.6-6.2) 10^6/uL Hgb 14.9 (14.0-18.0) g/dL Hct 42.5 (40.0-54.0) % MCV 86.7 (80-100) fL MCH 30.4 (27.0-34.0) pg MCHC 35.1 H (33.0-35.0) g/dL Plt Count 316 (150-450) 10^3/uL Neut % (Auto) 84.3 H (42.2-75.2) % Lymph % (Auto) 7.3 L (20.5-50.1) % [place] % (Auto) 8.3 H (2-8) % Eos % (Auto) 0.0 L (1.0-3.0) % Baso % (Auto) 0.1 (0.0-1.0) % Sodium 136 (135-145) mmol/L Potassium 3.3 L (3.6-5.0) mmol/L Chloride 100 L (101-111) mmol/L Carbon Dioxide 27.0 (21.0-31.0) mmol/L Anion Gap 12.3 BUN 7 (7-18) mg/dL Creatinine 0.9 (0.6-1.3) mg/dL Est Cr Clr Drug Dosing 77.77 mL/min Estimated GFR (MDRD) > 60 BUN/Creatinine Ratio 7.77 Glucose 115 H (74-105) mg/dL Lactic Acid 0.9 (0.5-2.2) mmol/L Calcium 8.6 (8.4-10.2) mg/dl Total Bilirubin 0.9 (0.2-1.0) mg/dL AST 27 (10-42) IU/L ALT 35 (10-60) IU/L Alkaline Phosphatase 87 (42-121) IU/L C-Reactive Protein (0.0-1.3) mg/dL Total Protein 7.3 (6.7-8.2) g/dl Albumin 3.5 (3.2-5.5) g/dl Globulin 3.8 Albumin/Globulin Ratio 0.92 12/03/19 12/04/19 12/04/19 Range/Units 14:10 05:45 05:45 WBC 16.1 H (5.0-10.0) 10^3/uL RBC 4.42 L (4.6-6.2) 10^6/uL Hgb 13.1 L D (14.0-18.0) g/dL Hct 39.0 L (40.0-54.0) % MCV 88.2 (80-100) fL MCH 29.6 (27.0-34.0) pg MCHC 33.6 (33.0-35.0) g/dL Plt Count 306 (150-450) 10^3/uL Neut % (Auto) 76.4 H (42.2-75.2) % Lymph % (Auto) 13.4 L (20.5-50.1) % [place] % (Auto) 9.5 H (2-8) % Eos % (Auto) 0.5 L (1.0-3.0) % Baso % (Auto) 0.2 (0.0-1.0) % Sodium 136 (135-145) mmol/L Potassium 4.0 (3.6-5.0) mmol/L Chloride 103 (101-111) mmol/L Carbon Dioxide 25.0 (21.0-31.0) mmol/L Anion Gap 12.0 BUN 8 (7-18) mg/dL Creatinine 0.9 (0.6-1.3) mg/dL Est Cr Clr Drug Dosing 102.08 mL/min Estimated GFR (MDRD) > 60 BUN/Creatinine Ratio Glucose 107 H (74-105) mg/dL Lactic Acid (0.5-2.2) mmol/L Calcium 7.8 L (8.4-10.2) mg/dl Total Bilirubin (0.2-1.0) mg/dL AST (10-42) IU/L ALT (10-60) IU/L Alkaline Phosphatase (42-121) IU/L C-Reactive Protein 17.3 H (0.0-1.3) mg/dL Total Protein (6.7-8.2) g/dl Albumin (3.2-5.5) g/dl Globulin Albumin/Globulin Ratio Reinaldo Results Last 24 Hours: Microbiology 12/03/19 13:58 Wound Culture - Preliminary Ankle, Right Med Orders - Current: Current Medications Enoxaparin Sodium (Lovenox) 40 mg SUBCUT DAILY [facility] Last Admin: 12/04/19 08:25 Dose: Not Given Piperacillin Sod/Tazobactam (Sod 3.375 gm/ Sodium Chloride) 100 mls @ 200 mls/ hr IV Q6H [facility] Last Infusion: 12/04/19 06:28 Dose: Infused Sodium Chloride (Normal Saline) 1,000 mls @ 75 mls/hr IV ASDIRECTED [facility] Last Admin: 12/04/19 01:31 Dose: 125 mls/hr Vancomycin HCl 1 gm/ Premix 200 mls @ 133.333 mls/hr IV Q8H [facility] Last Admin: 12/04/19 08:25 Dose: 133.333 mls/hr Morphine Sulfate (Morphine) 4 mg IVPUSH Q2H PRN PRN Reason: Pain (severe 7-10) Ondansetron HCl (Zofran) 4 mg IVPUSH Q6H PRN PRN Reason: Nausea/Vomiting Oxycodone/Acetaminophen (Percocet 325-5 Mg) 1 tab PO Q4H PRN PRN Reason: Pain (moderate 4-6) Last Admin: 12/04/19 08:24 Dose: 1 tab Sodium Chloride (Saline Flush) 10 ml FLUSH ASDIRECTED PRN PRN Reason: Keep Vein Open Vancomycin HCl (Pharmacy To Dose - Vancomycin) 0 dose .XX ASDIRECTED [facility] Discontinued Medications Bupivacaine HCl (Marcaine 0.5%) 30 ml INJECT ONETIME ONE Stop: 12/03/19 15:46 Last Admin: 12/03/19 15:56 Dose: 30 ml Diphenhydramine HCl (Benadryl) 12.5 mg IVPUSH ONETIME ONE Stop: 12/03/19 14:56 Last Admin: 12/03/19 15:04 Dose: 12.5 mg Fentanyl (Sublimaze) 100 mcg IVPUSH ONETIME ONE Stop: 12/03/19 15:17 Last Admin: 12/03/19 15:40 Dose: 100 mcg Sodium Chloride (Normal Saline) 1,000 mls @ 999 mls/hr IV .BOLUS ONE Stop: 12/03/19 15:47 Last Admin: 12/03/19 15:04 Dose: 999 mls/hr Vancomycin HCl 1 gm/ Sodium (Chloride) 250 mls @ 167 mls/hr IV ONETIME ONE Stop: 12/03/19 16:16 Last Admin: 12/03/19 15:10 Dose: 167 mls/hr Lidocaine HCl (Xylocaine-Mpf 1%) 30 ml INJECT ONETIME ONE Stop: 12/03/19 15:46 Last Admin: 12/03/19 15:56 Dose: 30 ml Ondansetron HCl (Zofran) 4 mg IV ONETIME ONE Stop: 12/03/19 15:19 Last Admin: 12/03/19 15:39 Dose: 4 mg Sodium Chloride (Saline Flush) 10 ml FLUSH ASDIRECTED PRN PRN Reason: Keep Vein Open Last Admin: 12/03/19 14:31 Dose: 10 ml - Exam General: Alert, Oriented, Cooperative, No Acute Distress Neck: Supple Lungs: Clear to Auscultation, Normal Respiratory Effort Cardiovascular: Regular Rate, Regular Rhythm GI/Abdominal Exam: Normal Bowel Sounds, Soft, Non-Tender, No Organomegaly, No Distention, No Abnormal Bruit, No Mass, Pelvis Stable Sepsis Event Note - Evaluation Sepsis Screening Result: No Definite Risk - Focused Exam Vital Signs: Vital Signs Temp Pulse Resp BP Pulse Ox 12/04/19 08:00 36.9 C 90 16 109/61 99 12/04/19 04:00 37.2 C 95 16 115/75 99 12/04/19 00:00 37.4 C 95 16 116/77 95 Date Exam was Performed: 12/04/19 Time Exam was Performed: 11:31 - Problem List Review Problem List Initiated/Reviewed/Updated: Yes - My Orders Last 24 Hours: My Active Orders 12/03/19 15:22 Patient Status [ADT] Routine Oxygen Therapy [RC] PRN Up ad Charline [RC] ASDIRECTED VTE/DVT Education [RC] PER UNIT ROUTINE Vital Signs [RC] Q4H Morphine 4 mg IVPUSH Q2H PRN Ondansetron [Zofran] 4 mg IVPUSH Q6H PRN Resuscitation Status Routine 12/03/19 15:23 Intake and Output [RC] QSHIFT 12/03/19 15:30 Sodium Chloride 0.9% [Normal Saline] 1,000 ml IV ASDIRECTED 12/03/19 17:11 Acetaminophen/oxyCODONE [Percocet 325-5 MG] 1 tab PO Q4H PRN 12/03/19 18:00 Piperacillin/Tazobactam [Zosyn] 3.375 gm Sodium Chloride 0.9% [Normal Saline] 100 ml IV Q6H 12/03/19 Dinner Nothing per Oral After Midnight Diet [DIET] Regular Diet [DIET] 12/04/19 08:23 Sodium Chloride 0.9% [Saline Flush] 10 ml FLUSH ASDIRECTED PRN 12/04/19 09:00 Enoxaparin [Lovenox] 40 mg SUBCUT DAILY 12/04/19 14:30 VANCOMYCIN TROUGH [CHEM] Timed 12/04/19 15:25 Pharmacy to Dose - Vancomycin 0 dose .XX ASDIRECTED 12/05/19 06:00 CBC W/O DIFF,HEMOGRAM [HEME] Routine - Plan Plan:: #. Sepsis this is secondary to cellulitis of the right leg and abscess #. Abscess right lower leg Patient is status post drainage of the abscess #. Cellulitis of the right leg Has erythema, tenderness and warmth of the right lower leg #. Hypokalemia Replaced Plan: Podiatry consulted. Underwent incision and drainage Discontinue intravenous fluids Continue intravenous vancomycin Continue intravenous Zosyn Obtain repeat complete blood count
--- NOTE | 2019-12-04 16:49 | PCM.CONSN ---
- General Info Date of Service: 12/04/19 Admission Dx/Problem (Free Text): right ankle abscess and cellulitis Subjective Update: 29 y/o male 1 day status post I&D right ankle abscess, states pain is somewhat improved today to right leg and swelling seems better to the foot. No new issues today. - Patient Data Vitals - Most Recent: Last Vital Signs Temp 37.4 C 12/04/19 11:52 Pulse 84 12/04/19 11:52 Resp 18 12/04/19 11:52 BP 120/65 12/04/19 11:52 Pulse Ox 98 12/04/19 11:52 Weight - Most Recent: 59.058 kg I&O - Last 24 Hours: Intake & Output 12/04/19 12/04/19 12/04/19 06:59 14:59 22:59 Intake Total 480 Balance 480 Lab Results Last 24 Hours: Laboratory Results - last 24 hr 12/04/19 12/04/19 12/04/19 Range/Units 05:45 05:45 14:20 WBC 16.1 H (5.0-10.0) 10^3/uL RBC 4.42 L (4.6-6.2) 10^6/uL Hgb 13.1 L D (14.0-18.0) g/dL Hct 39.0 L (40.0-54.0) % MCV 88.2 (80-100) fL MCH 29.6 (27.0-34.0) pg MCHC 33.6 (33.0-35.0) g/dL Plt Count 306 (150-450) 10^3/uL Neut % (Auto) 76.4 H (42.2-75.2) % Lymph % (Auto) 13.4 L (20.5-50.1) % [place] % (Auto) 9.5 H (2-8) % Eos % (Auto) 0.5 L (1.0-3.0) % Baso % (Auto) 0.2 (0.0-1.0) % Sodium 136 (135-145) mmol/L Potassium 4.0 (3.6-5.0) mmol/L Chloride 103 (101-111) mmol/L Carbon Dioxide 25.0 (21.0-31.0) mmol/L Anion Gap 12.0 BUN 8 (7-18) mg/dL Creatinine 0.9 (0.6-1.3) mg/dL Est Cr Clr Drug Dosing 102.08 mL/min Estimated GFR (MDRD) > 60 Glucose 107 H (74-105) mg/dL Calcium 7.8 L (8.4-10.2) mg/dl Vancomycin Trough 10.8 (10-15) ug/ml Reinaldo Results Last 24 Hours: Microbiology 12/03/19 14:16 Aerobic Blood Culture - Preliminary Blood - Venous - Lab Draw NO GROWTH AFTER 1 DAY Anaerobic Blood Culture - Preliminary NO GROWTH AFTER 1 DAY 12/03/19 14:10 Aerobic Blood Culture - Preliminary Blood - Venous NO GROWTH AFTER 1 DAY Anaerobic Blood Culture - Preliminary NO GROWTH AFTER 1 DAY 12/03/19 13:58 Wound Culture - Preliminary Ankle, Right Med Orders - Current: Current Medications Enoxaparin Sodium (Lovenox) 40 mg SUBCUT DAILY [facility] Last Admin: 12/04/19 08:25 Dose: Not Given Piperacillin Sod/Tazobactam (Sod 3.375 gm/ Sodium Chloride) 100 mls @ 200 mls/ hr IV Q6H [facility] Last Admin: 12/04/19 13:20 Dose: 200 mls/hr Vancomycin HCl 1 gm/ Premix 200 mls @ 133.333 mls/hr IV Q8H [facility] Last Admin: 12/04/19 16:15 Dose: 130 mls/hr Morphine Sulfate (Morphine) 4 mg IVPUSH Q2H PRN PRN Reason: Pain (severe 7-10) Ondansetron HCl (Zofran) 4 mg IVPUSH Q6H PRN PRN Reason: Nausea/Vomiting Oxycodone/Acetaminophen (Percocet 325-5 Mg) 1 tab PO Q4H PRN PRN Reason: Pain (moderate 4-6) Last Admin: 12/04/19 12:44 Dose: 1 tab Sodium Chloride (Saline Flush) 10 ml FLUSH ASDIRECTED PRN PRN Reason: Keep Vein Open Vancomycin HCl (Pharmacy To Dose - Vancomycin) 0 dose .XX ASDIRECTED [facility] Discontinued Medications Bupivacaine HCl (Marcaine 0.5%) 30 ml INJECT ONETIME ONE Stop: 12/03/19 15:46 Last Admin: 12/03/19 15:56 Dose: 30 ml Diphenhydramine HCl (Benadryl) 12.5 mg IVPUSH ONETIME ONE Stop: 12/03/19 14:56 Last Admin: 12/03/19 15:04 Dose: 12.5 mg Fentanyl (Sublimaze) 100 mcg IVPUSH ONETIME ONE Stop: 12/03/19 15:17 Last Admin: 12/03/19 15:40 Dose: 100 mcg Sodium Chloride (Normal Saline) 1,000 mls @ 999 mls/hr IV .BOLUS ONE Stop: 12/03/19 15:47 Last Admin: 12/03/19 15:04 Dose: 999 mls/hr Vancomycin HCl 1 gm/ Sodium (Chloride) 250 mls @ 167 mls/hr IV ONETIME ONE Stop: 12/03/19 16:16 Last Admin: 12/03/19 15:10 Dose: 167 mls/hr Sodium Chloride (Normal Saline) 1,000 mls @ 75 mls/hr IV ASDIRECTED [facility] Last Admin: 12/04/19 01:31 Dose: 125 mls/hr Vancomycin HCl 1 gm/ Premix 200 mls @ 133.333 mls/hr IV Q8H [facility] Last Admin: 12/04/19 16:35 Dose: Not Given Lidocaine HCl (Xylocaine-Mpf 1%) 30 ml INJECT ONETIME ONE Stop: 12/03/19 15:46 Last Admin: 12/03/19 15:56 Dose: 30 ml Ondansetron HCl (Zofran) 4 mg IV ONETIME ONE Stop: 12/03/19 15:19 Last Admin: 12/03/19 15:39 Dose: 4 mg Sodium Chloride (Saline Flush) 10 ml FLUSH ASDIRECTED PRN PRN Reason: Keep Vein Open Last Admin: 12/03/19 14:31 Dose: 10 ml - Exam General: Alert, Oriented, No Acute Distress Physical Findings Comments:: Right LE exam today reveals improved erythema to foot/ankle with wound to lateral right ankle. I am not able to express any purulent drainage for the area today, visualization of the base of the wound from the incision appears with healthy appearing tissue. Pain to danny wound area and extending proximally along lateral ankle/calf but improved from yesterday. Overall, looks improved. Sepsis Event Note - Evaluation Sepsis Screening Result: No Definite Risk - Focused Exam Vital Signs: Vital Signs Temp Pulse Resp BP Pulse Ox 12/04/19 11:52 37.4 C 84 18 120/65 98 01/03/20 08:00 36.9 C 90 16 109/61 99 Date Exam was Performed: 12/04/19 Time Exam was Performed: 16:43 Consult PN Assessment/Plan POD#: 1 Procedures: Procedures ASSAY OF AMYLASE (12/18/15) ASSAY OF LACTIC ACID (11/17/19) ASSAY OF LIPASE (12/18/15) BLOOD CULTURE FOR BACTERIA (11/17/19) COMPLETE CBC W/AUTO DIFF WBC (11/17/19) COMPREHEN METABOLIC PANEL (11/17/19) CULTURE AEROBIC IDENTIFY (11/17/19) CULTURE OTHR SPECIMN AEROBIC (11/17/19) CULTURE SCREEN ONLY (05/15/18) EMERGENCY DEPT VISIT (11/17/19) EMERGENCY DEPT VISIT (12/18/15) EMERGENCY DEPT VISIT (10/15/15) EMERGENCY DEPT VISIT (12/19/13) HYDRATE IV INFUSION ADD-ON (05/15/18) MANUAL THERAPY 1/> [facility] (02/01/14) PT EVALUATION (02/01/14) ROUTINE VENIPUNCTURE (11/17/19) STREP A AG IA (05/15/18) THER/PROPH/DIAG INJ IV PUSH (05/15/18) THER/PROPH/DIAG IV INF ADDON (11/17/19) THER/PROPH/DIAG IV INF INIT (11/17/19) THERAPEUTIC EXERCISES (02/01/14) TX/PRO/DX INJ NEW DRUG ADDON (12/18/15) URINALYSIS AUTO W/SCOPE (12/18/15) X-RAY EXAM CHEST 2 VIEWS (02/05/19) X-RAY EXAM OF HAND (10/15/15) (1) Cellulitis and abscess of right lower extremity SNOMED Code(s): 448463346 Code(s): L03.115 - CELLULITIS OF RIGHT LOWER LIMB; L02.415 - CUTANEOUS ABSCESS OF RIGHT LOWER LIMB Current Visit: Yes Problem List Initiated/Reviewed/Updated: Yes Plan: I did removed dressing and packing today at bedside. Area overall looks improved and not able to express any purulence today, abscess not deep. I irrigated I&D area with NS and cleansed with vashe wound cleanser. I then packed with iodoform packing and applied new dressing with gauze and franklin. WBC down today to 16 from 23 yesterday. I will recheck him again tomorrow AM, plan on NPO again tonight after midnight until after I eval in the morning. I do not expect to have to take him to OR but will do NPO just in case.
[2019-12-05] MEDS: Piperacillin/Tazobactam 3.375 GM in Sodium Chloride 0.9% 100 ML IV SCH (05:55)
[2019-12-05] MEDS: Acetaminophen/oxyCODONE 325-5 MG Tab PO PRN ×4 (06:00→18:47)
[2019-12-05] MEDS: Sodium Chloride 0.9% 10 ML Syringe FLUSH PRN ×2 (08:02→17:36)
[2019-12-05] MEDS: Enoxaparin 40 MG/0.4 ML Syringe SUBCUT SCH (08:02)
[2019-12-05] MEDS ORDERED: Morphine 4 MG/ML Syringe IVPUSH PRN (09:02)
--- NOTE | 2019-12-05 09:22 | PCM.CONSN ---
- General Info Date of Service: 12/05/19 Admission Dx/Problem (Free Text): right ankle abscess and cellulitis Subjective Update: 29 y/o male 2 days status post I&D right ankle abscess, admitted with IV antibiotics vancomycin. pt states pain improved today. He has been keeping leg elevated in bed. Denies any new issues today. - Patient Data Vitals - Most Recent: Last Vital Signs Temp 36.9 C 12/05/19 08:02 Pulse 84 12/05/19 08:02 Resp 20 12/05/19 08:02 BP 127/70 12/05/19 08:02 Pulse Ox 99 12/05/19 08:02 Weight - Most Recent: 59.058 kg I&O - Last 24 Hours: Intake & Output 12/04/19 12/05/19 12/05/19 22:59 06:59 14:59 Intake Total 540 Balance 540 Lab Results Last 24 Hours: Laboratory Results - last 24 hr 12/04/19 12/05/19 Range/Units 14:20 05:45 WBC 9.6 (5.0-10.0) 10^3/uL RBC 4.63 (4.6-6.2) 10^6/uL Hgb 13.9 L (14.0-18.0) g/dL Hct 41.0 (40.0-54.0) % MCV 88.6 (80-100) fL MCH 30.0 (27.0-34.0) pg MCHC 33.9 (33.0-35.0) g/dL Plt Count 364 (150-450) 10^3/uL Vancomycin Trough 10.8 (10-15) ug/ml Reinaldo Results Last 24 Hours: Microbiology 12/03/19 13:58 Wound Culture - Final Ankle, Right Streptococcus Group A 12/03/19 14:16 Aerobic Blood Culture - Preliminary Blood - Venous - Lab Draw NO GROWTH AFTER 1 DAY Anaerobic Blood Culture - Preliminary NO GROWTH AFTER 1 DAY 12/03/19 14:10 Aerobic Blood Culture - Preliminary Blood - Venous NO GROWTH AFTER 1 DAY Anaerobic Blood Culture - Preliminary NO GROWTH AFTER 1 DAY Med Orders - Current: Current Medications Enoxaparin Sodium (Lovenox) 40 mg SUBCUT DAILY [facility] Last Admin: 12/05/19 08:02 Dose: Not Given Cefazolin Sodium/Dextrose 2 gm (/ Premix) 50 mls @ 100 mls/hr IV Q8H [facility] Morphine Sulfate (Morphine) 4 mg IVPUSH Q6H PRN PRN Reason: Pain (severe 7-10) Ondansetron HCl (Zofran) 4 mg IVPUSH Q6H PRN PRN Reason: Nausea/Vomiting Oxycodone/Acetaminophen (Percocet 325-5 Mg) 1 tab PO Q4H PRN PRN Reason: Pain (moderate 4-6) Last Admin: 12/05/19 06:00 Dose: 1 tab Sodium Chloride (Saline Flush) 10 ml FLUSH ASDIRECTED PRN PRN Reason: Keep Vein Open Last Admin: 12/05/19 08:02 Dose: 10 ml Discontinued Medications Bupivacaine HCl (Marcaine 0.5%) 30 ml INJECT ONETIME ONE Stop: 12/03/19 15:46 Last Admin: 12/03/19 15:56 Dose: 30 ml Diphenhydramine HCl (Benadryl) 12.5 mg IVPUSH ONETIME ONE Stop: 12/03/19 14:56 Last Admin: 12/03/19 15:04 Dose: 12.5 mg Fentanyl (Sublimaze) 100 mcg IVPUSH ONETIME ONE Stop: 12/03/19 15:17 Last Admin: 12/03/19 15:40 Dose: 100 mcg Sodium Chloride (Normal Saline) 1,000 mls @ 999 mls/hr IV .BOLUS ONE Stop: 12/03/19 15:47 Last Admin: 12/03/19 15:04 Dose: 999 mls/hr Vancomycin HCl 1 gm/ Sodium (Chloride) 250 mls @ 167 mls/hr IV ONETIME ONE Stop: 12/03/19 16:16 Last Admin: 12/03/19 15:10 Dose: 167 mls/hr Piperacillin Sod/Tazobactam (Sod 3.375 gm/ Sodium Chloride) 100 mls @ 200 mls/ hr IV Q6H [facility] Last Admin: 12/05/19 05:55 Dose: 200 mls/hr Sodium Chloride (Normal Saline) 1,000 mls @ 75 mls/hr IV ASDIRECTED [facility] Last Admin: 12/04/19 01:31 Dose: 125 mls/hr Vancomycin HCl 1 gm/ Premix 200 mls @ 133.333 mls/hr IV Q8H [facility] Last Admin: 12/04/19 16:35 Dose: Not Given Vancomycin HCl 1 gm/ Premix 200 mls @ 133.333 mls/hr IV Q8H [facility] Last Admin: 12/05/19 08:01 Dose: 130 mls/hr Lidocaine HCl (Xylocaine-Mpf 1%) 30 ml INJECT ONETIME ONE Stop: 12/03/19 15:46 Last Admin: 12/03/19 15:56 Dose: 30 ml Morphine Sulfate (Morphine) 4 mg IVPUSH Q2H PRN PRN Reason: Pain (severe 7-10) Ondansetron HCl (Zofran) 4 mg IV ONETIME ONE Stop: 12/03/19 15:19 Last Admin: 12/03/19 15:39 Dose: 4 mg Sodium Chloride (Saline Flush) 10 ml FLUSH ASDIRECTED PRN PRN Reason: Keep Vein Open Last Admin: 12/03/19 14:31 Dose: 10 ml Vancomycin HCl (Pharmacy To Dose - Vancomycin) 0 dose .XX ASDIRECTED [facility] - Exam General: Alert, Oriented, No Acute Distress Physical Findings Comments:: RLE physical exam today reveals wound to lateral right ankle which is partial thickness and probes approx 1.5 cm around the incision area, not able to express any purulence from the wound today. there is a small area of necrotic skin overyling where abscess was drained. Significant improvement in pain today with palpation to the danny wound area compared to yesterday, no pain medial ankle or along ankle joint, no pain extending proximally up leg. Improved erythema to lateral foot/ankle today. N/V intact. Sepsis Event Note - Evaluation Sepsis Screening Result: No Definite Risk - Focused Exam Vital Signs: Vital Signs Temp Pulse Resp BP Pulse Ox 12/05/19 08:02 36.9 C 84 20 127/70 99 12/05/19 00:00 36.8 C 63 16 120/65 100 Date Exam was Performed: 12/05/19 Time Exam was Performed: 09:17 Consult PN Assessment/Plan POD#: 2 Procedures: Procedures ASSAY OF AMYLASE (12/18/15) ASSAY OF LACTIC ACID (11/17/19) ASSAY OF LIPASE (12/18/15) BLOOD CULTURE FOR BACTERIA (11/17/19) COMPLETE CBC W/AUTO DIFF WBC (11/17/19) COMPREHEN METABOLIC PANEL (11/17/19) CULTURE AEROBIC IDENTIFY (11/17/19) CULTURE OTHR SPECIMN AEROBIC (11/17/19) CULTURE SCREEN ONLY (05/15/18) EMERGENCY DEPT VISIT (11/17/19) EMERGENCY DEPT VISIT (12/18/15) EMERGENCY DEPT VISIT (10/15/15) EMERGENCY DEPT VISIT (12/19/13) HYDRATE IV INFUSION ADD-ON (05/15/18) MANUAL THERAPY 1/> [facility] (02/01/14) PT EVALUATION (02/01/14) ROUTINE VENIPUNCTURE (11/17/19) STREP A AG IA (05/15/18) THER/PROPH/DIAG INJ IV PUSH (05/15/18) THER/PROPH/DIAG IV INF ADDON (11/17/19) THER/PROPH/DIAG IV INF INIT (11/17/19) THERAPEUTIC EXERCISES (02/01/14) TX/PRO/DX INJ NEW DRUG ADDON (12/18/15) URINALYSIS AUTO W/SCOPE (12/18/15) X-RAY EXAM CHEST 2 VIEWS (02/05/19) X-RAY EXAM OF HAND (10/15/15) (1) Cellulitis and abscess of right lower extremity SNOMED Code(s): 075169817 Code(s): L03.115 - CELLULITIS OF RIGHT LOWER LIMB; L02.415 - CUTANEOUS ABSCESS OF RIGHT LOWER LIMB Current Visit: Yes Problem List Initiated/Reviewed/Updated: Yes Plan: RLE overall looks improved again and I am not able to express any purulence today upon removal of dressing. I irrigated I&D area with NS and cleansed with vashe wound cleanser. I then packed with iodoform packing and applied new dressing, I did a LP lower extremity compression dressing today to help with edema. WBC down today to 9.6 from 16 yesterday. I will recheck him again tomorrow AM for dressing change.
[2019-12-05] MEDS: ceFAZolin 2 GM in Premix Bag 1 BAG IV SCH ×2 (10:03→17:36)
--- NOTE | 2019-12-05 10:10 | PCM.PN ---
- General Info Date of Service: 12/05/19 Subjective Update: Patient has no new complaint today Continues to have pain at the left lower extremity Intensity of pain is about 5-6 on a scale 0-10 Worse with dressing changes an associated swelling of the distal right leg - Review of Systems General: Reports: Weakness Musculoskeletal: Reports: Leg Pain, Foot Pain - Patient Data Vitals - Most Recent: Last Vital Signs Temp 36.9 C 12/05/19 08:02 Pulse 84 12/05/19 08:02 Resp 20 12/05/19 08:02 BP 127/70 12/05/19 08:02 Pulse Ox 99 12/05/19 08:02 Weight - Most Recent: 59.058 kg I&O - Last 24 Hours: Intake & Output 12/04/19 12/05/19 12/05/19 22:59 06:59 14:59 Intake Total 540 Balance 540 Lab Results Last 24 Hours: Laboratory Results - last 24 hr 12/04/19 12/05/19 Range/Units 14:20 05:45 WBC 9.6 (5.0-10.0) 10^3/uL RBC 4.63 (4.6-6.2) 10^6/uL Hgb 13.9 L (14.0-18.0) g/dL Hct 41.0 (40.0-54.0) % MCV 88.6 (80-100) fL MCH 30.0 (27.0-34.0) pg MCHC 33.9 (33.0-35.0) g/dL Plt Count 364 (150-450) 10^3/uL Vancomycin Trough 10.8 (10-15) ug/ml Reinaldo Results Last 24 Hours: Microbiology 12/03/19 13:58 Wound Culture - Final Ankle, Right Streptococcus Group A 12/03/19 14:16 Aerobic Blood Culture - Preliminary Blood - Venous - Lab Draw NO GROWTH AFTER 1 DAY Anaerobic Blood Culture - Preliminary NO GROWTH AFTER 1 DAY 12/03/19 14:10 Aerobic Blood Culture - Preliminary Blood - Venous NO GROWTH AFTER 1 DAY Anaerobic Blood Culture - Preliminary NO GROWTH AFTER 1 DAY Med Orders - Current: Current Medications Enoxaparin Sodium (Lovenox) 40 mg SUBCUT DAILY [facility] Last Admin: 12/05/19 08:02 Dose: Not Given Cefazolin Sodium/Dextrose 2 gm (/ Premix) 50 mls @ 100 mls/hr IV Q8H [facility] Last Admin: 12/05/19 10:03 Dose: 100 mls/hr Morphine Sulfate (Morphine) 4 mg IVPUSH Q6H PRN PRN Reason: Pain (severe 7-10) Ondansetron HCl (Zofran) 4 mg IVPUSH Q6H PRN PRN Reason: Nausea/Vomiting Oxycodone/Acetaminophen (Percocet 325-5 Mg) 1 tab PO Q4H PRN PRN Reason: Pain (moderate 4-6) Last Admin: 12/05/19 10:03 Dose: 1 tab Sodium Chloride (Saline Flush) 10 ml FLUSH ASDIRECTED PRN PRN Reason: Keep Vein Open Last Admin: 12/05/19 08:02 Dose: 10 ml Discontinued Medications Bupivacaine HCl (Marcaine 0.5%) 30 ml INJECT ONETIME ONE Stop: 12/03/19 15:46 Last Admin: 12/03/19 15:56 Dose: 30 ml Diphenhydramine HCl (Benadryl) 12.5 mg IVPUSH ONETIME ONE Stop: 12/03/19 14:56 Last Admin: 12/03/19 15:04 Dose: 12.5 mg Fentanyl (Sublimaze) 100 mcg IVPUSH ONETIME ONE Stop: 12/03/19 15:17 Last Admin: 12/03/19 15:40 Dose: 100 mcg Sodium Chloride (Normal Saline) 1,000 mls @ 999 mls/hr IV .BOLUS ONE Stop: 12/03/19 15:47 Last Admin: 12/03/19 15:04 Dose: 999 mls/hr Vancomycin HCl 1 gm/ Sodium (Chloride) 250 mls @ 167 mls/hr IV ONETIME ONE Stop: 12/03/19 16:16 Last Admin: 12/03/19 15:10 Dose: 167 mls/hr Piperacillin Sod/Tazobactam (Sod 3.375 gm/ Sodium Chloride) 100 mls @ 200 mls/ hr IV Q6H [facility] Last Admin: 12/05/19 05:55 Dose: 200 mls/hr Sodium Chloride (Normal Saline) 1,000 mls @ 75 mls/hr IV ASDIRECTED [facility] Last Admin: 12/04/19 01:31 Dose: 125 mls/hr Vancomycin HCl 1 gm/ Premix 200 mls @ 133.333 mls/hr IV Q8H [facility] Last Admin: 12/04/19 16:35 Dose: Not Given Vancomycin HCl 1 gm/ Premix 200 mls @ 133.333 mls/hr IV Q8H [facility] Last Infusion: 12/05/19 09:48 Dose: Infused Lidocaine HCl (Xylocaine-Mpf 1%) 30 ml INJECT ONETIME ONE Stop: 12/03/19 15:46 Last Admin: 12/03/19 15:56 Dose: 30 ml Morphine Sulfate (Morphine) 4 mg IVPUSH Q2H PRN PRN Reason: Pain (severe 7-10) Ondansetron HCl (Zofran) 4 mg IV ONETIME ONE Stop: 12/03/19 15:19 Last Admin: 12/03/19 15:39 Dose: 4 mg Sodium Chloride (Saline Flush) 10 ml FLUSH ASDIRECTED PRN PRN Reason: Keep Vein Open Last Admin: 12/03/19 14:31 Dose: 10 ml Vancomycin HCl (Pharmacy To Dose - Vancomycin) 0 dose .XX ASDIRECTED [facility] - Exam General: Alert, Oriented, Cooperative Neck: Supple Lungs: Clear to Auscultation, Normal Respiratory Effort Cardiovascular: Regular Rate, Regular Rhythm GI/Abdominal Exam: Normal Bowel Sounds, Soft, Non-Tender, No Organomegaly, No Distention, No Abnormal Bruit, No Mass, Pelvis Stable Extremities: Redness, Other (Draining wound right lower leg) Sepsis Event Note - Evaluation Sepsis Screening Result: No Definite Risk - Focused Exam Vital Signs: Vital Signs Temp Pulse Resp BP Pulse Ox 12/05/19 08:02 36.9 C 84 20 127/70 99 12/05/19 00:00 36.8 C 63 16 120/65 100 Date Exam was Performed: 12/05/19 Time Exam was Performed: 10:11 - Problem List Review Problem List Initiated/Reviewed/Updated: Yes - My Orders Last 24 Hours: My Active Orders 12/05/19 09:02 Morphine 4 mg IVPUSH Q6H PRN 12/05/19 10:00 ceFAZolin [Ancef] 2 gm Premix Bag 1 bag IV Q8H - Plan Plan:: #. Sepsis this is secondary to cellulitis of the right leg and abscess Blood cultures have been negative Wound culture grew Streptococcus #. Abscess right lower leg Patient is status post drainage of the abscess Wound culture grew Streptococcus #. Cellulitis of the right leg Has erythema, tenderness and warmth of the right lower leg #. Hypokalemia Replaced Plan: Is continue intravenous Zosyn Discontinue intravenous vancomycin Start patient on intravenous cefazolin 2 g every 8 hours Discussed with pulpit operator We'll apply wraps to the right lower extremity
[2019-12-06] MEDS: Sodium Chloride 0.9% 10 ML Syringe FLUSH PRN (01:47)
[2019-12-06] MEDS: ceFAZolin 2 GM in Premix Bag 1 BAG IV SCH ×2 (01:47→09:37)
[2019-12-06] MEDS: Acetaminophen/oxyCODONE 325-5 MG Tab PO PRN ×2 (01:57→08:43)
[2019-12-06 08:13] VITALS: BP 125/76; PULSE 96
[2019-12-06] MEDS: Enoxaparin 40 MG/0.4 ML Syringe SUBCUT SCH (08:43)
--- NOTE | 2019-12-06 09:03 | PCM.DCSUM1 ---
Discharge Summary - Hospital Course Free Text/Narrative:: The patient presented to the emergency room with complaint of fever chills and rigors. Also has been having pain of the right lower leg. Developed cellulitis which was treated as outpatient but patient was not compliant with medication. His white cell count was elevated up to 23,000. Patient was admitted to the hospital and placed on intravenous antibiotics. We consulted podiatry and they performed incision and drainage of right leg abscess. Patient is feeling better and will be discharged home. He will continue with outpatient lymphedema therapy and oral antibiotics. Blood cultures were negative. Cultures from the wound grew group A streptococcus #. Sepsis this is secondary to cellulitis of the right leg and abscess Blood cultures have been negative Wound culture grew Streptococcus #. Abscess right lower leg Patient is status post drainage of the abscess Wound culture grew Streptococcus #. Cellulitis of the right leg Had erythema, tenderness and warmth of the right lower leg #. Hypokalemia Replaced - Discharge Data Discharge Date: 12/06/19 Discharge Disposition: Home, Self-Care 01 Condition: Good - Referral to Home Health Primary Care Physician: PCP Unobtainable - Patient Instructions Activity: As Tolerated Driving: May Drive Today, Do Not Drive Showering/Bathing: May Shower Notify Provider of: Fever, Increased Pain, Swelling and Redness Other/Special Instructions: F/up with PMD. Continue lymphedema therapy as directed by podiatry - Discharge Plan *PRESCRIPTION DRUG MONITORING PROGRAM REVIEWED*: No *COPY OF PRESCRIPTION DRUG MONITORING REPORT IN PATIENT JOSE RAUL: No Prescriptions/Med Rec: Acetaminophen/oxyCODONE [Percocet 325-5 MG] 1 tab PO Q4H PRN #20 tablet PRN Reason: Pain (Moderate 4-6) Amoxicillin/Clavulanate K [Augmentin 875-125 MG] 1 tab PO BID #14 tablet Home Medications: Home Meds Acetaminophen/oxyCODONE [Percocet 325-5 MG] 1 tab PO Q4H PRN #20 tablet [Rx] Amoxicillin/Clavulanate K [Augmentin 875-125 MG] 1 tab PO BID #14 tablet [Rx] Referrals: PCP,Unobtain [Primary Care Provider] - - Discharge Summary/Plan Comment DC Time >30 min.: No - General Info Date of Service: 12/06/19 - Review of Systems General: Reports: Malaise Pulmonary: Reports: No Symptoms Cardiovascular: Reports: No Symptoms Musculoskeletal: Reports: Leg Pain - Patient Data Vitals - Most Recent: Last Vital Signs Temp 37.2 C 12/06/19 08:12 Pulse 96 12/06/19 08:12 Resp 20 12/06/19 08:12 BP 125/76 12/06/19 08:12 Pulse Ox 100 12/06/19 08:12 Weight - Most Recent: 59.058 kg I&O - Last 24 hours: Intake & Output 12/05/19 12/06/19 12/06/19 22:59 06:59 14:59 Intake Total 0 50 Output Total 400 Balance 0 -350 SWAPNA Results - Last 24 hrs: Microbiology 12/03/19 14:16 Aerobic Blood Culture - Preliminary Blood - Venous - Lab Draw NO GROWTH AFTER 2 DAYS Anaerobic Blood Culture - Preliminary NO GROWTH AFTER 2 DAYS 12/03/19 14:10 Aerobic Blood Culture - Preliminary Blood - Venous NO GROWTH AFTER 2 DAYS Anaerobic Blood Culture - Preliminary NO GROWTH AFTER 2 DAYS 12/03/19 13:58 Wound Culture - Final Ankle, Right Streptococcus Group A Med Orders - Current: Current Medications Enoxaparin Sodium (Lovenox) 40 mg SUBCUT DAILY [facility] Last Admin: 12/06/19 08:43 Dose: Not Given Cefazolin Sodium/Dextrose 2 gm (/ Premix) 50 mls @ 100 mls/hr IV Q8H [facility] Last Infusion: 12/06/19 02:25 Dose: Infused Morphine Sulfate (Morphine) 4 mg IVPUSH Q6H PRN PRN Reason: Pain (severe 7-10) Ondansetron HCl (Zofran) 4 mg IVPUSH Q6H PRN PRN Reason: Nausea/Vomiting Oxycodone/Acetaminophen (Percocet 325-5 Mg) 1 tab PO Q4H PRN PRN Reason: Pain (moderate 4-6) Last Admin: 12/06/19 08:43 Dose: 1 tab Sodium Chloride (Saline Flush) 10 ml FLUSH ASDIRECTED PRN PRN Reason: Keep Vein Open Last Admin: 12/06/19 01:47 Dose: 10 ml Discontinued Medications Bupivacaine HCl (Marcaine 0.5%) 30 ml INJECT ONETIME ONE Stop: 12/03/19 15:46 Last Admin: 12/03/19 15:56 Dose: 30 ml Diphenhydramine HCl (Benadryl) 12.5 mg IVPUSH ONETIME ONE Stop: 12/03/19 14:56 Last Admin: 12/03/19 15:04 Dose: 12.5 mg Fentanyl (Sublimaze) 100 mcg IVPUSH ONETIME ONE Stop: 12/03/19 15:17 Last Admin: 12/03/19 15:40 Dose: 100 mcg Sodium Chloride (Normal Saline) 1,000 mls @ 999 mls/hr IV .BOLUS ONE Stop: 12/03/19 15:47 Last Admin: 12/03/19 15:04 Dose: 999 mls/hr Vancomycin HCl 1 gm/ Sodium (Chloride) 250 mls @ 167 mls/hr IV ONETIME ONE Stop: 12/03/19 16:16 Last Admin: 12/03/19 15:10 Dose: 167 mls/hr Piperacillin Sod/Tazobactam (Sod 3.375 gm/ Sodium Chloride) 100 mls @ 200 mls/ hr IV Q6H [facility] Last Admin: 12/05/19 05:55 Dose: 200 mls/hr Sodium Chloride (Normal Saline) 1,000 mls @ 75 mls/hr IV ASDIRECTED NICOLAS Last Admin: 12/04/19 01:31 Dose: 125 mls/hr Vancomycin HCl 1 gm/ Premix 200 mls @ 133.333 mls/hr IV Q8H [facility] Last Admin: 12/04/19 16:35 Dose: Not Given Vancomycin HCl 1 gm/ Premix 200 mls @ 133.333 mls/hr IV Q8H [facility] Last Infusion: 12/05/19 09:48 Dose: Infused Lidocaine HCl (Xylocaine-Mpf 1%) 30 ml INJECT ONETIME ONE Stop: 12/03/19 15:46 Last Admin: 12/03/19 15:56 Dose: 30 ml Morphine Sulfate (Morphine) 4 mg IVPUSH Q2H PRN PRN Reason: Pain (severe 7-10) Ondansetron HCl (Zofran) 4 mg IV ONETIME ONE Stop: 12/03/19 15:19 Last Admin: 12/03/19 15:39 Dose: 4 mg Sodium Chloride (Saline Flush) 10 ml FLUSH ASDIRECTED PRN PRN Reason: Keep Vein Open Last Admin: 12/03/19 14:31 Dose: 10 ml Vancomycin HCl (Pharmacy To Dose - Vancomycin) 0 dose .XX ASDIRECTED NICOLAS - Exam General: Reports: Alert, Oriented, Cooperative Neck: Reports: Supple Lungs: Reports: Clear to Auscultation, Normal Respiratory Effort Cardiovascular: Reports: Regular Rate Extremities: Other (Lymphedema dressing to the right lower extremity)
--- NOTE | 2019-12-06 09:26 | PCM.CONSN ---
- General Info Date of Service: 12/06/19 Admission Dx/Problem (Free Text): right ankle abscess and cellulitis Subjective Update: 29 y/o 3 days post I&D right lateral ankle abscess. Reports he is doing well today, can tell the swelling is much improved and can move the foot/ankle today without pain. Pain also improved. Has kept dressing c,d,i. Is able to WB without issues. - Patient Data Vitals - Most Recent: Last Vital Signs Temp 37.2 C 12/06/19 08:12 Pulse 96 12/06/19 08:12 Resp 20 12/06/19 08:12 BP 125/76 12/06/19 08:12 Pulse Ox 100 12/06/19 08:12 Weight - Most Recent: 59.058 kg I&O - Last 24 Hours: Intake & Output 12/05/19 12/06/19 12/06/19 22:59 06:59 14:59 Intake Total 0 50 Output Total 400 Balance 0 -350 Reinaldo Results Last 24 Hours: Microbiology 12/03/19 14:16 Aerobic Blood Culture - Preliminary Blood - Venous - Lab Draw NO GROWTH AFTER 2 DAYS Anaerobic Blood Culture - Preliminary NO GROWTH AFTER 2 DAYS 12/03/19 14:10 Aerobic Blood Culture - Preliminary Blood - Venous NO GROWTH AFTER 2 DAYS Anaerobic Blood Culture - Preliminary NO GROWTH AFTER 2 DAYS 12/03/19 13:58 Wound Culture - Final Ankle, Right Streptococcus Group A Med Orders - Current: Current Medications Enoxaparin Sodium (Lovenox) 40 mg SUBCUT DAILY [facility] Last Admin: 12/06/19 08:43 Dose: Not Given Cefazolin Sodium/Dextrose 2 gm (/ Premix) 50 mls @ 100 mls/hr IV Q8H [facility] Last Infusion: 12/06/19 02:25 Dose: Infused Morphine Sulfate (Morphine) 4 mg IVPUSH Q6H PRN PRN Reason: Pain (severe 7-10) Ondansetron HCl (Zofran) 4 mg IVPUSH Q6H PRN PRN Reason: Nausea/Vomiting Oxycodone/Acetaminophen (Percocet 325-5 Mg) 1 tab PO Q4H PRN PRN Reason: Pain (moderate 4-6) Last Admin: 12/06/19 08:43 Dose: 1 tab Sodium Chloride (Saline Flush) 10 ml FLUSH ASDIRECTED PRN PRN Reason: Keep Vein Open Last Admin: 12/06/19 01:47 Dose: 10 ml Discontinued Medications Bupivacaine HCl (Marcaine 0.5%) 30 ml INJECT ONETIME ONE Stop: 12/03/19 15:46 Last Admin: 12/03/19 15:56 Dose: 30 ml Diphenhydramine HCl (Benadryl) 12.5 mg IVPUSH ONETIME ONE Stop: 12/03/19 14:56 Last Admin: 12/03/19 15:04 Dose: 12.5 mg Fentanyl (Sublimaze) 100 mcg IVPUSH ONETIME ONE Stop: 12/03/19 15:17 Last Admin: 12/03/19 15:40 Dose: 100 mcg Sodium Chloride (Normal Saline) 1,000 mls @ 999 mls/hr IV .BOLUS ONE Stop: 12/03/19 15:47 Last Admin: 12/03/19 15:04 Dose: 999 mls/hr Vancomycin HCl 1 gm/ Sodium (Chloride) 250 mls @ 167 mls/hr IV ONETIME ONE Stop: 12/03/19 16:16 Last Admin: 12/03/19 15:10 Dose: 167 mls/hr Piperacillin Sod/Tazobactam (Sod 3.375 gm/ Sodium Chloride) 100 mls @ 200 mls/ hr IV Q6H [facility] Last Admin: 12/05/19 05:55 Dose: 200 mls/hr Sodium Chloride (Normal Saline) 1,000 mls @ 75 mls/hr IV ASDIRECTED [facility] Last Admin: 12/04/19 01:31 Dose: 125 mls/hr Vancomycin HCl 1 gm/ Premix 200 mls @ 133.333 mls/hr IV Q8H [facility] Last Admin: 12/04/19 16:35 Dose: Not Given Vancomycin HCl 1 gm/ Premix 200 mls @ 133.333 mls/hr IV Q8H [facility] Last Infusion: 12/05/19 09:48 Dose: Infused Lidocaine HCl (Xylocaine-Mpf 1%) 30 ml INJECT ONETIME ONE Stop: 12/03/19 15:46 Last Admin: 12/03/19 15:56 Dose: 30 ml Morphine Sulfate (Morphine) 4 mg IVPUSH Q2H PRN PRN Reason: Pain (severe 7-10) Ondansetron HCl (Zofran) 4 mg IV ONETIME ONE Stop: 12/03/19 15:19 Last Admin: 12/03/19 15:39 Dose: 4 mg Sodium Chloride (Saline Flush) 10 ml FLUSH ASDIRECTED PRN PRN Reason: Keep Vein Open Last Admin: 12/03/19 14:31 Dose: 10 ml Vancomycin HCl (Pharmacy To Dose - Vancomycin) 0 dose .XX ASDIRECTED NICOLAS - Exam General: Alert, Oriented, No Acute Distress Physical Findings Comments:: RLE exam today reveals n/v intact, improved erythema to right LE with now just some mild erythema at I&D area, none extending proximally up leg. Pain just to danny wound today, none to calf. Swelling improved with just some mild edema lateral ankle, none to foot or medial ankle. No pain medial ankle or along ankel joint, no pain with ROM of ankle joint. Wound lateral ankle is filling in nicely with new granular tissue. I am not able to express any purulent drainage for the wound today. Sepsis Event Note - Evaluation Sepsis Screening Result: No Definite Risk - Focused Exam Vital Signs: Vital Signs Temp Pulse Resp BP Pulse Ox 12/06/19 08:12 37.2 C 96 20 125/76 100 12/06/19 02:30 37.0 C 72 20 120/76 97 Date Exam was Performed: 12/06/19 Time Exam was Performed: 09:20 Consult PN Assessment/Plan POD#: 3 Procedures: Procedures ASSAY OF AMYLASE (12/18/15) ASSAY OF LACTIC ACID (11/17/19) ASSAY OF LIPASE (12/18/15) BLOOD CULTURE FOR BACTERIA (11/17/19) COMPLETE CBC W/AUTO DIFF WBC (11/17/19) COMPREHEN METABOLIC PANEL (11/17/19) CULTURE AEROBIC IDENTIFY (11/17/19) CULTURE OTHR SPECIMN AEROBIC (11/17/19) CULTURE SCREEN ONLY (05/15/18) EMERGENCY DEPT VISIT (11/17/19) EMERGENCY DEPT VISIT (12/18/15) EMERGENCY DEPT VISIT (10/15/15) EMERGENCY DEPT VISIT (12/19/13) HYDRATE IV INFUSION ADD-ON (05/15/18) MANUAL THERAPY 1/> [facility] (02/01/14) PT EVALUATION (02/01/14) ROUTINE VENIPUNCTURE (11/17/19) STREP A AG IA (05/15/18) THER/PROPH/DIAG INJ IV PUSH (05/15/18) THER/PROPH/DIAG IV INF ADDON (11/17/19) THER/PROPH/DIAG IV INF INIT (11/17/19) THERAPEUTIC EXERCISES (02/01/14) TX/PRO/DX INJ NEW DRUG ADDON (12/18/15) URINALYSIS AUTO W/SCOPE (12/18/15) X-RAY EXAM CHEST 2 VIEWS (02/05/19) X-RAY EXAM OF HAND (10/15/15) (1) Cellulitis and abscess of right lower extremity SNOMED Code(s): 081430061 Code(s): L03.115 - CELLULITIS OF RIGHT LOWER LIMB; L02.415 - CUTANEOUS ABSCESS OF RIGHT LOWER LIMB Current Visit: Yes Problem List Initiated/Reviewed/Updated: Yes Plan: RLE overall looks improved again and I am not able to express any purulence today, wound looks improved and starting to fill in with new granular tissue. I irrigated I&D area with NS and cleansed with vashe wound cleanser. I then packed with iodoform packing and applied new dressing, I did a LP lower extremity compression dressing today since that did seem to help with edema. Plan is for d/c today on oral antibiotics. He is to keep dressing c,d,i until I see him tomorrow. I will see him in clinic tomorrow at 2:00, will do dressing change for him then.
== END 2019-12-06 10:45 | disposition home or self-care (01) | DRG 854 ==
LOC: DL.ED 12:46 → DL.MS 15:22
PROVIDERS: ADMIT Hospitalist; ATTEND Hospitalist
PROC: 0J9N0ZZ Drainage of Right Lower Leg Subcutaneous Tissue and Fascia, Open Approach (ICD-10-PCS; principal; 2019-12-03)
DX: A41.9 Sepsis, unspecified organism (principal); L03.115 Cellulitis of right lower limb; L02.415 Cutaneous abscess of right lower limb; I96 Gangrene, not elsewhere classified; E87.6 Hypokalemia; M54.5 Low back pain; G89.29 Other chronic pain; F17.210 Nicotine dependence, cigarettes, uncomplicated; Z91.14 Patient's other noncompliance with medication regimen; Z79.2 Long term (current) use of antibiotics; Z79.899 Other long term (current) drug therapy; Z86.14 Personal history of Methicillin resistant Staphylococcus aureus infection
CPT/HCPCS: 36415; 73610-RT; 80048; 80053; 80202; 83605; 85025; 85027; 86140; 87040; 87070; 87077; A9270-GY; J0690; J1200; J2001; J2405; J2543; J3010; J3370; J3490; J7030; J7050

== ENCOUNTER 2021-08-21 18:56 | Emergency (ER) | payer MEDICAID | END 2021-08-21 19:20 | disposition left against medical advice (07) | LOC: DL.ED 18:56 | DX: R52 Pain, unspecified (principal); Z53.21 Procedure and treatment not carried out due to patient leaving prior to being seen by health care provider ==

== ENCOUNTER 2022-02-16 12:16 | Emergency (ER) | payer MEDICAID ==
[2022-02-16 12:33] VITALS: BP 129/88; PULSE 110
[2022-02-16 14:13] LABS: CHLORIDE,CL 99 mmol/L (98-107); SODIUM,NA 135 mmol/L (136-145)
[2022-02-16] MEDS ORDERED: cefTRIAXone 1 GM, Lidocaine 1% 2.1 ML IM ONE ×2 (14:20)
[2022-02-16] MEDS ORDERED: Doxycycline Monohydrate 100 MG Cap PO ONE (14:23)
[2022-02-16] MEDS ORDERED: Levofloxacin 500 MG Tab PO ONE (14:23)
[2022-02-21 12:46] LABS: C.TRACHOMATIS BY TMA Negative (Negative); N.GONORRHOEAE BY TMA Positive (Negative)
== END 2022-02-16 14:45 | disposition home or self-care (01) ==
LOC: DL.ED 12:16
DX: N45.1 Epididymitis (principal); N30.00 Acute cystitis without hematuria; Z72.0 Tobacco use
CPT/HCPCS: 36415; 80053; 81001; 85025; 87086; 87491; 87563; 87591; 96372; 99284; A9270; J0696

== ENCOUNTER 2025-10-02 17:46 | Emergency (ER) | payer MEDICAID ==
[2025-10-02 18:43] VITALS: BP 121/64; PULSE 71
== END 2025-10-02 18:41 | disposition home or self-care (01) ==
LOC: DL.ED 17:46
DX: R07.89 Other chest pain (principal)
CPT/HCPCS: 71045; 99282; 99284; A9270-GY